=== PATIENT | male | born 1935 | race Hispanic/Latino ===

== ENCOUNTER 2017-02-06 13:21 | Emergency (ER) | payer MEDICARE, BC ==
[2017-02-06 13:23] VITALS: BMI 19.8
[2017-02-06 13:49] VITALS: BP 151/82; PULSE 56; RESP 20; TEMP 99; O2SAT 98
[2017-02-06] MEDS ORDERED: DiphenhydrAMINE 12.5 mg/5 ml LIQ UD (5 ml) PO STA (14:03)
--- NOTE | 2017-02-06 14:11 | ED PDOC ---
Arrival/HPI - General Chief Complaint: Abnormal Skin Integrity Time Seen by Provider: 02/06/17 13:53 Historian: Patient - History of Present Illness Narrative History of Present Illness (Text): 02/06/17 14:08 81 year old male presents to the emergency department with rash on left arm and left upper back for the past week. pt unsure if related to fungal cream used for penis. pt states rash is puritic at times. no known allergens 02/06/17 15:11 Time/Duration: 1 week Symptom Onset: Sudden Symptom Course: Unchanged Associated Symptoms (Text): Subjective fever Past Medical History - Provider Review Nursing Documentation Reviewed: Yes - Infectious Disease Hx of Infectious Diseases: None - Tetanus Immunization Tetanus Immunization: Unknown - Cardiac Hx Pacemaker: No - Neurological Hx Paralysis: No - Hematological/Oncological Hx Blood Transfusions: No Hx Blood Transfusion Reaction: No - Integumentary Other/Comment: fungal rash - Musculoskeletal/Rheumatological Hx Musculoskeletal Disorders: Yes - Genitourinary/Gynecological Hx Prostate Problems: Yes - Psychiatric Hx Emotional Abuse: No Hx Physical Abuse: No Hx Substance Use: No - Past Surgical History Past Surgical History: Non-Contributing - Surgical History Hx Dilation and Curettage: Yes (x2) - Anesthesia Hx Anesthesia: Yes Hx Anesthesia Reactions: No Hx Malignant Hyperthermia: No - Suicidal Assessment Feels Threatened In Home Enviroment: No Family/Social History - Physician Review Nursing Documentation Reviewed: Yes Family/Social History: Unknown Family HX Smoking Status: Never Smoked Hx Alcohol Use: No Hx Substance Use: No Hx Substance Use Treatment: No Allergies/Home Meds Allergies/Adverse Reactions: Allergies pcn Adverse Reaction (Uncoded 02/06/17 13:48) RASH Home Medications: Home Meds Medication Instructions Recorded Confirmed Atenolol 12.5 mg PO DAILY 08/20/12 02/06/17 Coenzyme Q10 [Co Q-10] 200 mg PO DAILY 07/10/13 02/06/17 Tamsulosin [Flomax] 0.4 mg PO DAILY 07/10/13 02/06/17 Review of Systems - Physician Review All systems were reviewed & negative as marked: Yes - Review of Systems Constitutional: Fevers (subjective) Respiratory: absent: SOB Cardiovascular: absent: Chest Pain Skin: Rash Physical Exam Vital Signs Reviewed: Yes Vital Signs Temp Pulse Resp BP Pulse Ox 02/06/17 13:39 99 F 56 L 20 151/82 H 98 Temperature: Afebrile Blood Pressure: Normal Pulse: Bradycardic Respiratory Rate: Normal Appearance: Positive for: Well-Appearing, Non-Toxic, Comfortable Pain Distress: None Mental Status: Positive for: Alert and Oriented X 3 - Systems Exam Head: Present: Atraumatic, Normocephalic Pupils: Present: PERRL Conjunctiva: Present: Normal Neck: Present: Normal Range of Motion Neurological: Present: GCS=15, CN II-XII Intact, Speech Normal Skin: Present: Rashes (Vesicular, erythematous rash with dermatomal pattern to left upper back and left arm) Psychiatric: Present: Alert, Oriented x 3, Normal Insight, Normal Concentration Medical Decision Making ED Course and Treatment: Impression: 81 year old male presents to the emergency department with rash on left arm and left upper back for the past week. Differential Diagnosis included but are not limited to: Shingles vs other nonspecific vesicular rash/allergic rxn Plan: -- Acyclovir, Benadryl, Prednisone -- Discharge, f/u with guest service supervisor Progress Notes: 02/06/17 15:11 - Medication Orders Current Medication Orders: Discontinued Medications Acyclovir (Zovirax) 400 mg PO STAT STA PRN Reason: Protocol Stop: 02/06/17 14:04 Last Admin: 02/06/17 14:19 Dose: 400 mg Diphenhydramine HCl (Benadryl) 25 mg PO STAT STA Stop: 02/06/17 14:04 Last Admin: 02/06/17 14:18 Dose: 25 mg Prednisone (Prednisone Tab) 50 mg PO STAT STA Stop: 02/06/17 14:04 Last Admin: 02/06/17 14:17 Dose: 50 mg - Scribe Statement The provider has reviewed the documentation as recorded by the Adriel Harrell Provider Scribe Attestation: All medical record entries made by the Adriel were at my direction and personally dictated by me. I have reviewed the chart and agree that the record accurately reflects my personal performance of the history, physical exam, medical decision making, and the department course for this patient. I have also personally directed, reviewed, and agree with the discharge instructions and disposition. Disposition/Present on Arrival - Present on Arrival Any Indicators Present on Arrival: No History of DVT/PE: No History of Uncontrolled Diabetes: No Urinary Catheter: No History of Decub. Ulcer: No History Surgical Site Infection Following: None - Disposition Have Diagnosis and Disposition been Completed?: Yes Diagnosis: Shingles, Rash Disposition: HOME/ ROUTINE Disposition Time: 02:00 Condition: STABLE Discharge Instructions (ExitCare): Shingles (ED), Acute Rash (ED) Print Language: [place]IZ[place] Additional Instructions: follow up with specialist. return to emergency room with worsening symptoms or concerns Prescriptions: Acyclovir 800 mg PO 5XD #35 tablet Prednisone 50 mg PO DAILY #5 tab Referrals: Augustin Adams MD [Primary Care Provider] - Follow up with primary Jamal Tay MD [Staff Provider] - Follow up with primary
== END 2017-02-06 14:55 | disposition home or self-care (01) ==
LOC: ED 13:21
DX: B02.9 Zoster without complications (principal); R21 Rash and other nonspecific skin eruption
CPT/HCPCS: 99283; J8499

== ENCOUNTER 2017-02-17 09:54 | Inpatient (IN) | payer MEDICARE, BC ==
[2017-02-17 10:18] VITALS: BMI 24.2
--- NOTE | 2017-02-17 10:43 | ED PDOC ---
Arrival/HPI - General Historian: Patient - History of Present Illness Time/Duration: Prior to Arrival Symptom Course: Unchanged Context: Home <Maria Teresa Nur - Last Filed: 02/17/17 11:09> <Luis Hargrove - Last Filed: 02/17/17 13:16> - General Chief Complaint: Weakness/Neurological Deficit Time Seen by Provider: 02/17/17 10:05 - History of Present Illness Narrative History of Present Illness (Text): 02/17/17 10:45 81 yo male with PMH of skin cancer and cardiac stents presents to ED with weakness. Patient is a poor history. Patient was in ED last week for rash and was diagnosed with shingles, he was discharged with acyclovir and predisone. Patient states that he took about half of the acyclovir course but stopped because he could not tolerate the medication. He states that he began to feel weak and had difficulty walking started using a cane. He states that he fell down twice, once at home and again on the street yesterday. He denies loss of consciousness but states he needed help getting up. He also reports unsteady gait trembling, and chills. He states he has not been eating as well due to nausea without vomiting. Patient states he continues to have pain where his rash is located, on his left arm and aspect of anterior his chest. Rash started about 2 weeks. He states hes having chest pain but associated with rash. PMD: Dr. Adams (Maria Teresa Nur) Past Medical History - Provider Review Nursing Documentation Reviewed: Yes - Infectious Disease Hx of Infectious Diseases: None - Tetanus Immunization Tetanus Immunization: Unknown - Cardiac Hx Cardiac Disorders: Yes Hx Hypertension: Yes Hx Pacemaker: No - Neurological Hx Paralysis: No - Hematological/Oncological Hx Blood Transfusions: No Hx Blood Transfusion Reaction: No Hx Shingles: Yes - Integumentary Other/Comment: fungal rash - Musculoskeletal/Rheumatological Hx Musculoskeletal Disorders: Yes - Genitourinary/Gynecological Hx Prostate Problems: Yes - Psychiatric Hx Emotional Abuse: No Hx Physical Abuse: No Hx Substance Use: No - Past Surgical History Past Surgical History: Non-Contributing - Surgical History Hx Coronary Stent: Yes (stent x2) - Anesthesia Hx Anesthesia: Yes Hx Anesthesia Reactions: No Hx Malignant Hyperthermia: No - Suicidal Assessment Feels Threatened In Home Enviroment: No <Maria Teresa Nur - Last Filed: 02/17/17 11:09> Family/Social History - Physician Review Nursing Documentation Reviewed: Yes Family/Social History: No Known Family HX Smoking Status: Never Smoked Hx Alcohol Use: No Hx Substance Use: No Hx Substance Use Treatment: No <Maria Teresa Nur - Last Filed: 02/17/17 11:09> Family/Social History: No Known Family HX <Luis Hargrove - Last Filed: 02/17/17 13:16> Allergies/Home Meds <Maria Teresa Nur - Last Filed: 02/17/17 11:09> <Luis Hargrove - Last Filed: 02/17/17 13:16> Allergies/Adverse Reactions: Allergies pcn Adverse Reaction (Uncoded 02/17/17 10:18) RASH Home Medications: Home Meds Medication Instructions Recorded Confirmed Tamsulosin [Flomax] 0.4 mg PO DAILY 07/10/13 02/17/17 Atenolol [Tenormin] 25 mg PO DAILY 02/17/17 02/17/17 Review of Systems - Review of Systems Constitutional: Fevers, Other (general weakness) Eyes: Normal. absent: Vision Changes ENT: Normal. absent: Hearing Changes, Sore Throat Respiratory: Normal. absent: SOB, Cough, Wheezing Cardiovascular: Normal, Chest Pain. absent: Palpitations, Calf Pain, Syncope Gastrointestinal: Abdominal Pain, Nausea. absent: Constipation, Diarrhea, Vomiting Genitourinary Male: Normal. absent: Dysuria, Frequency, Hematuria Musculoskeletal: Normal, Arthralgias. absent: Joint Swelling, Myalgias Skin: Rash (with pain ), Pruritis. absent: Laceration, Ulcer Neurological: Other (unsteady gait). absent: Headache, Dizziness, Speech Changes Endocrine: Normal Hemo/Lymphatic: Normal. absent: Easy Bleeding, Easy Bruising Psychiatric: Normal <Maria Teresa Nur - Last Filed: 02/17/17 11:09> Physical Exam - Systems Exam Head: Present: Atraumatic, Normocephalic Pupils: Present: PERRL. No: Non-Reactive, Pinpoint Extroacular Muscles: Present: EOMI Conjunctiva: Present: Normal. No: Injected, Icteric Mouth: Present: Moist Mucous Membranes Neck: Present: Normal Range of Motion. No: MIDLINE TENDERNESS Respiratory/Chest: Present: Clear to Auscultation, Good Air Exchange. No: Respiratory Distress, Accessory Muscle Use, Wheezes, Rales, Rhonchi, Tachypneic Cardiovascular: Present: Regular Rate and Rhythm, Normal S1, S2. No: Murmurs, Tachycardic, Bradycardic Abdomen: Present: Normal Bowel Sounds. No: Tenderness, Distention, Peritoneal Signs Back: Present: Normal Inspection Upper Extremity: Present: Other (macropapular rash, associated with pain ). No : Cyanosis, Edema Lower Extremity: Present: Normal Inspection, NORMAL PULSES. No: Edema, CALF TENDERNESS Neurological: Present: GCS=15, CN II-XII Intact, Speech Normal Skin: Present: Warm, Dry, Rashes, Normal Color Psychiatric: Present: Alert, Oriented x 3, Normal Insight, Normal Concentration <LiudmilaMaria Teresa - Last Filed: 02/17/17 11:09> Medical Decision Making <Liudmila,Maria Teresa - Last Filed: 02/17/17 11:09> - Critical Care Critical Care Minutes: 30 minutes - Lab Interpretations I have reviewed the lab results: Yes <DelvinLuis L - Last Filed: 02/17/17 13:16> ED Course and Treatment: 02/17/17 10:41 impression: differential diagnoses include but are not limited to: - viral syndrome/ shingels, dehydration, failure to thrive Plan: - CBC - CMP, magnesium - EKG - troponins - IVF (Liudmila,Maria Teresa) Patient seen and examined with resident. Came up with treatment and disposition plan with resident. The patient is a 81 year old male who presents to the emergency department complaining of weakness. Additional HPI details as noted by the resident. On physical examination the patient has a macropapular rash with pain. Patient EKG shows sinus brandycardia at 59 BPM with a 1st degree AV block, otherwise normal interval. Patent noted to have low sodium. In the setting of passing out a couple of days ago and weakness today, ICU was consulted. Case was discussed with Dr. Doyle , who is aware and agrees with the plan to admit the patient to ICU under his care. He states to give the patient hypertonic saline 75ml bolus. Case was discussed with Dr. Adams, who is aware and agrees with the plan. Results and plan were discussed with the patient, who expresses understanding. Patient given the opportunity to ask question, all questions were answered and there is agreement with the plan to be admitted to the hospital. (Luis Hargrove) - Lab Interpretations Lab Results: 02/17/17 11:06 02/17/17 11:06 Lab Results 02/17/17 11:06: Sodium 115 L*, Potassium 4.9, Chloride 85 L, Carbon Dioxide 22, Anion Gap 13, BUN 15, Creatinine 0.7, Est GFR ( Amer) > 60, Est GFR (Non- Af Amer) > 60, Random Glucose 104, Calcium 8.8, Magnesium 2.0, Total Bilirubin 0.8, AST 52, ALT 38, Alkaline Phosphatase 45, Lactate Dehydrogenase 518, Total Creatine Kinase 698 H, CK-MB (CK-2) 9.4 H, CK-MB (CK-2) % 1.3 L, Troponin I < 0.01, Total Protein 6.6, Albumin 3.7, Globulin 3.0, Albumin/Globulin Ratio 1.2 02/17/17 11:06: WBC 7.0, RBC 4.10, Hgb 12.9 L, Hct 35.2 L, MCV 85.9, MCH 31.5, MCHC 36.6, RDW 13.0, Plt Count 278, MPV 8.5, Gran % 50.4, Lymph % (Auto) 38.6 H , Merrick % (Auto) 10.2 H, Eos % (Auto) 0.7 L, Baso % (Auto) 0.1, Gran # 3.52, Lymph # 2.7, Merrick # 0.7 H, Eos # 0.1, Baso # 0.01 - EKG Interpretation EKG Interpretation (Text): 02/17/17 10:39 rate of 59 bpm sinus bradycardia with 1st degree AV block (Liudmila,Maria Teresa) - Medication Orders Current Medication Orders: Methylprednisolone (Solu-Medrol) 20 mg IVP Q12 TALIA Last Admin: 02/17/17 12:32 Dose: 20 mg Discontinued Medications Sodium Chloride (Hypertonic Saline 3%) 75 mls @ 75 mls/hr IV .Q1H ONE Stop: 02/17/17 13:14 Last Admin: 02/17/17 12:32 Dose: 75 mls/hr Sodium Chloride (Hypertonic Saline 3%) 75 ml IV ONCE ONE Stop: 02/17/17 11:54 <Maria Teresa Nur - Last Filed: 02/17/17 11:09> - PA / [employer]ER / Resident Statement MD/DO has reviewed & agrees with the documentation as recorded. MD/DO has examined the patient and agrees with the treatment plan. - Scribe Statement The provider has reviewed the documentation as recorded by the Scribe <Luis Hargrove - Last Filed: 02/17/17 13:16> - Scribe Statement Cally Osborne Provider Scribe Attestation: All medical record entries made by the Scribe were at my direction and personally dictated by me. I have reviewed the chart and agree that the record accurately reflects my personal performance of the history, physical exam, medical decision making, and the department course for this patient. I have also personally directed, reviewed, and agree with the discharge instructions and disposition. (Luis Hargrove) Disposition/Present on Arrival - Present on Arrival History of DVT/PE: No History of Uncontrolled Diabetes: No Urinary Catheter: No History of Decub. Ulcer: No History Surgical Site Infection Following: None <Maria Teresa Nur - Last Filed: 02/17/17 11:09> - Present on Arrival Any Indicators Present on Arrival: No - Disposition Have Diagnosis and Disposition been Completed?: Yes Disposition Time: 12:04 Patient Plan: Admission <Luis Hargrove - Last Filed: 02/17/17 13:16> - Disposition Diagnosis: Acute hyponatremia, Herpes zoster Disposition: HOSPITALIZED Condition: GUARDED
[2017-02-17] MEDS ORDERED: Sodium Chloride 0.9% 1,000 ML IV SCH ×2 (10:45→15:45)
[2017-02-17 11:08] LABS: ADD MANUAL DIFF? NO
[2017-02-17 11:12] LABS: BASO # 0.01 K/mm3 (0.0-2.0); BASO % 0.1 % (0.0-3.0); EOS # 0.1 (0.0-0.7); EOS % 0.7 % (1.5-5.0); GRAN # 3.52 (1.4-6.5); GRAN % 50.4 % (50.0-68.0); HEMATOCRIT 35.2 % (42.0-52.0); LYMPH # 2.7 (1.2-3.4); LYMPH % 38.6 % (22.0-35.0); MEAN CELL VOLUME 85.9 fL (80.0-105.0); MEAN CORPUSCULAR HEMOGLOBIN 31.5 pg (25.0-35.0); MEAN CORPUSCULAR HGB CONC 36.6 g/dl (31.0-37.0); MEAN PLATELET VOLUME 8.5 fl (7.0-11.0); MONO # 0.7 (0.1-0.6); MONO % 10.2 % (1.0-6.0); PLATELET COUNT 278 10^3/uL (120.0-450.0)
[2017-02-17 11:23] LABS: ALB/GLOB RATIO 1.2 (1.1-1.8); ALKALINE PHOSPHATASE 45 U/L (38-133); ALT/SGPT 38 U/L (7-56); AST/SGOT 52 U/L (15-59); BILIRUBIN,TOTAL 0.8 mg/dL (0.2-1.3); BLOOD UREA NITROGEN 15 mg/dL (7-21); CALCIUM 8.8 mg/dL (8.4-10.5); CARBON DIOXIDE 22 mmol/L (21-33); CHLORIDE 85 mmol/L (98-107); GFR AFRICAN-AMERICAN > 60; GLUCOSE,RANDOM 104 mg/dL (70-110); POTASSIUM 4.9 mmol/L (3.6-5.0); TOTAL PROTEIN 6.6 g/dL (5.8-8.3)
[2017-02-17 11:31] LABS: SODIUM 115 mmol/L (132-148)
[2017-02-17 11:36] LABS: TROPONIN I < 0.01 ng/mL
[2017-02-17] MEDS ORDERED: SODIUM CHLORIDE 3% IV ONE (12:15)
[2017-02-17] MEDS: MethylPREDNISolone 40 mg Vial IVP SCH ×2 (12:32→22:15)
--- NOTE | 2017-02-17 12:59 | CT ---
PROCEDURE: CT HEAD WITHOUT CONTRAST. HISTORY: pass out COMPARISON: None available. TECHNIQUE: Axial computed tomography images were obtained through the head/brain without intravenous contrast. Radiation dose: Total exam DLP = 768 mGy-cm. This CT exam was performed using one or more of the following dose reduction techniques: Automated exposure control, adjustment of the mA and/or kV according to patient size, and/or use of iterative reconstruction technique. FINDINGS: HEMORRHAGE: Are also in the differential considerations. Less dense areas of calcification are also are considerations. The chronicity of these findings is unknown In the differential for the basal ganglion appearances. No midline shift is noted. Generalized prominence to the cerebral sulci and ventriculomegaly -findings consistent with that advanced cerebral atrophy is suggested. Marked head tilt is present BRAIN: As above VENTRICLES: Ventriculomegaly commensurate with the degree of atrophy. CALVARIUM: Unremarkable. PARANASAL SINUSES: Inflammatory changes mostly retention cyst suggested. MASTOID AIR CELLS: Unremarkable as visualized. No inflammatory changes. OTHER FINDINGS: None. IMPRESSION: Bilateral basal ganglionic hyperdensities. In part, these are basal ganglionic punctate calcifications. Less dense areas in each basal ganglion are also present. Small coalescent areas of petechial hemorrhage are also considerations here. No associated mass effect. No significant appearing surrounding edema. Less dense areas of calcification are in the differential for small bilateral basal ganglionic petechial hemorrhagic components. No comparison studies are available. Consider MRI of the brain to further evaluate. No mass effect or extra-axial blood seen. Cerebral atrophy Incidental paranasal sinus inflammatory changes
[2017-02-17 13:28] LABS: INR 1.06 (0.93-1.08)
[2017-02-17 13:30] LABS: BLOOD UREA NITROGEN 14 mg/dL (7-21); CALCIUM 8.5 mg/dL (8.4-10.5); CARBON DIOXIDE 20 mmol/L (21-33); CHLORIDE 88 mmol/L (98-107); GFR AFRICAN-AMERICAN > 60; GLUCOSE,RANDOM 105 mg/dL (70-110); POTASSIUM 4.5 mmol/L (3.6-5.0)
[2017-02-17 13:36] LABS: SODIUM 115 mmol/L (132-148)
[2017-02-17 14:01] LABS: THYROID STIMULATING HORMONE 0.31 mIU/mL (0.46-4.68)
--- NOTE | 2017-02-17 14:28 | RAD ---
HISTORY: stat COMPARISON: 07/10/2013 FINDINGS: LUNGS: No active pulmonary disease. PLEURA: No significant pleural effusion identified, no pneumothorax apparent. CARDIOVASCULAR: Normal. OSSEOUS STRUCTURES: No significant abnormalities. VISUALIZED UPPER ABDOMEN: Normal. OTHER FINDINGS: None. IMPRESSION: No active disease.
--- NOTE | 2017-02-17 14:29 | CARD ---
APPROVED REPORT EKG Measurement Heart [id number] <Conclusion> Sinus bradycardia with 1st degree AV block Otherwise normal ECG
--- NOTE | 2017-02-17 14:41 | PN ---
DATE: 02/17/2017 This is an 81-year-old gentleman with history of hypertension and recent shingles, on acyclovir, who passed out yesterday on the street; however, came around and went home. Today morning, he was feeling a little bit dizzy and tired and went to Emergency Room to be evaluated. No fever, no chills, no sweats. No shortness of breath, no diarrhea, no vomiting. The patient occasionally felt nauseated, however, over a one-day period. PAST MEDICAL HISTORY: Hypertension, shingles. FAMILY HISTORY: Noncontributory. ALLERGIES: PENICILLIN. SOCIAL HISTORY: No alcohol or illicit drug abuse. No tobacco smoking. REVIEW OF SYSTEMS: Revealed 12 organ system other than mentioned in history of present illness is negative. LABORATORY DATA: Sodium 115, potassium 4.9, chloride 85, carbon dioxide 22, BUN 15, creatinine 0.7, glucose 104, AST 52, ALT 38. Troponin less than 0.01. WBC 7, hemoglobin 12.9, platelet count 278. EKG: No specific ischemic changes, normal sinus rhythm. Chest x-ray, CAT scan of the head are pending. ASSESSMENT AND PLAN: This is an 81-year-old gentleman who presented with severe hyponatremia and episode of losing consciousness. At present time, patient is somewhat dizzy and fatigued. He will receive 75 mL of 3% sodium chloride in the Emergency Room. We will repeat BMP shortly thereafter to check on sodium level at that point. We will continue with BMP every 4 hours and will avoid increment in sodium of more than 6 mEq per liter over the first 24 hours. Will send urine osmolarity, plasma osmolarity, TSH. We will get echocardiogram to rule out cardiogenic cause of severe hyponatremia. The patient was on prednisone as a part of the treatment for shingles complication and we will continue with Solu-Medrol 20 mg IV q. 12 for now. I will not order cortisol for that reason. We will also order urine electrolytes. The patient' s LFTs are normal and renal function appears to be within normal limits. He appears to be euvolemic vs hypovolemic on exam (hypochloremia and somewhat dry membranes and ok skin turgor--but physical exam lacks SN/SP for volume status, thus urine lites and osm were sent). I will start NS@100 cc/hr and as patient tolerates PO will start salt tablets. The patient will be admitted to ICU. We will continue with deep venous thrombosis and gastrointestinal prophylaxis. We will continue to maintain euvolemia, euglycemia, normothermia and oxygen saturation more than 90%. First set of troponin is negative. EKG did not show any specific ischemic changes. Will repeat troponin in 4 hours. We will obtain nephrology consult as well. ccm time 40 min Maxim Doyle MD cc: [id number] TT: 02/17/2017 14:40:40 Confirmation # [id number] Dictation # [id number] burton ARIAS
[2017-02-17] MEDS ORDERED: Sodium Chloride 3% 500 ML IV SCH ×2 (15:30→21:45)
[2017-02-17 16:28] LABS: BLOOD UREA NITROGEN 13 mg/dL (7-21); CALCIUM 8.7 mg/dL (8.4-10.5); CARBON DIOXIDE 20 mmol/L (21-33); CHLORIDE 87 mmol/L (98-107); GFR AFRICAN-AMERICAN > 60; GLUCOSE,RANDOM 131 mg/dL (70-110); POTASSIUM 4.5 mmol/L (3.6-5.0)
[2017-02-17 16:31] LABS: SODIUM 115 mmol/L (132-148)
[2017-02-17 18:27] LABS: BLOOD UREA NITROGEN 14 mg/dL (7-21); CALCIUM 8.6 mg/dL (8.4-10.5); CARBON DIOXIDE 21 mmol/L (21-33); CHLORIDE 87 mmol/L (98-107); GFR AFRICAN-AMERICAN > 60; GLUCOSE,RANDOM 187 mg/dL (70-110); POTASSIUM 4.6 mmol/L (3.6-5.0)
[2017-02-17 18:30] LABS: SODIUM 115 mmol/L (132-148)
[2017-02-17] MEDS ORDERED: Pneumococcal 23-Valent Vaccine IM ONE (19:47)
[2017-02-17 22:41] LABS: BLOOD UREA NITROGEN 16 mg/dL (7-21); CALCIUM 8.5 mg/dL (8.4-10.5); CARBON DIOXIDE 21 mmol/L (21-33); CHLORIDE 88 mmol/L (98-107); GFR AFRICAN-AMERICAN > 60
[2017-02-17 22:43] LABS: SODIUM 115 mmol/L (132-148)
[2017-02-17 22:45] LABS: GLUCOSE,RANDOM 117 mg/dL (70-110)
[2017-02-17 22:54] LABS: TROPONIN I < 0.01 ng/mL
[2017-02-18 03:10] LABS: BLOOD UREA NITROGEN 12 mg/dL (7-21); CALCIUM 8.4 mg/dL (8.4-10.5); CARBON DIOXIDE 20 mmol/L (21-33); CHLORIDE 92 mmol/L (95-110); GFR AFRICAN-AMERICAN > 60; GLUCOSE,RANDOM 131 mg/dL (70-110); POTASSIUM 4.5 mmol/L (3.6-5.0)
[2017-02-18 03:53] LABS: SODIUM 118 mmol/L (132-148)
[2017-02-18 06:19] LABS: HEMATOCRIT 36.6 % (42.0-52.0); MEAN CELL VOLUME 85.7 fL (80.0-105.0); MEAN CORPUSCULAR HEMOGLOBIN 31.1 pg (25.0-35.0); MEAN CORPUSCULAR HGB CONC 36.3 g/dl (31.0-37.0); MEAN PLATELET VOLUME 8.4 fl (7.0-11.0); WHITE BLOOD COUNT 8.5 10^3/ul (4.5-11.0)
[2017-02-18 06:23] LABS: BLOOD UREA NITROGEN 11 mg/dL (7-21); CALCIUM 8.3 mg/dL (8.4-10.5); CARBON DIOXIDE 22 mmol/L (21-33); CHLORIDE 92 mmol/L (95-110); GFR AFRICAN-AMERICAN > 60; GLUCOSE,RANDOM 126 mg/dL (70-110); POTASSIUM 4.5 mmol/L (3.6-5.0); SODIUM 120 mmol/L (132-148)
[2017-02-18 08:57] LABS: ALB/GLOB RATIO 1.2 (1.1-1.8); ALKALINE PHOSPHATASE 40 U/L (38-133); ALT/SGPT 36 U/L (7-56); AST/SGOT 39 U/L (15-59); BILIRUBIN,TOTAL 0.6 mg/dL (0.2-1.3); BLOOD UREA NITROGEN 11 mg/dL (7-21); CALCIUM 8.2 mg/dL (8.4-10.5); CARBON DIOXIDE 21 mmol/L (21-33); CHLORIDE 93 mmol/L (98-107); GFR AFRICAN-AMERICAN > 60; GLUCOSE,RANDOM 119 mg/dL (70-110); POTASSIUM 4.4 mmol/L (3.6-5.0); SODIUM 120 mmol/L (132-148); TOTAL PROTEIN 6.2 g/dL (5.8-8.3)
[2017-02-18] MEDS: MethylPREDNISolone 40 mg Vial IVP SCH ×2 (09:26→22:00)
[2017-02-18] MEDS ORDERED: Tolvaptan 15 MG TAB PO SCH (10:00)
[2017-02-18 10:41] LABS: T4 8.7 ug/dL (5.5-11.0)
[2017-02-18 10:55] LABS: T3 1.03 ng/mL (0.97-1.69); THYROID STIMULATING HORMONE 0.16 mIU/mL (0.46-4.68)
[2017-02-18 14:12] LABS: BLOOD UREA NITROGEN 13 mg/dL (7-21); CALCIUM 8.5 mg/dL (8.4-10.5); CARBON DIOXIDE 20 mmol/L (21-33); CHLORIDE 94 mmol/L (98-107); GFR AFRICAN-AMERICAN > 60; GLUCOSE,RANDOM 142 mg/dL (70-110); POTASSIUM 4.6 mmol/L (3.6-5.0); SODIUM 121 mmol/L (132-148)
--- NOTE | 2017-02-18 14:19 | HP ---
CHIEF COMPLAINT AND HISTORY OF PRESENT ILLNESS: This is an 81-year-old male who is coming into the [facility] with complaints of weakness. The patient has a history of coronary artery disease and skin c ancer. He had developed shingles and had come into the ER on 02/06. He was given acyclovir and predni sone and discharged home. The patient says he was taking acyclovir, but he was not tolerating the me dication well. He had come in to my office for evaluation. I confirmed that he did have shingles wi th active lesions. He was advised to continue with the acyclovir. He says that he tried to continue , but was not able to tolerate and had discontinued his medications. He has no complaint of any feve rs or chills, no nausea, no vomiting, no dysuria or frequency. He says he is feeling better. His ne uropathy from his shingles has improved as well. He is not using any significant pain medications. I did give him a prescription for pain medications. He has no nausea, no vomiting, no dysuria or sarah quency. REVIEW OF SYSTEMS: All other review of symptoms is within normal limits ALLERGIES: PENICILLIN. SOCIAL HISTORY: He does not smoke or drink. HOME MEDICATIONS: Flomax, atenolol and aspirin. FAMILY HISTORY: Noncontributory. PAST MEDICAL HISTORY: Coronary artery disease, shingles. PHYSICAL EXAMINATION: VITAL SIGNS: Temperature is 98, pulse is 63, blood pressure is 144/72, respirations 17, O2 saturatio n 97%. Height is 5 feet 6, weight is 150 pounds. GENERAL: Patient lying in bed, flat, and in no apparent distress. HEAD AND NECK EXAM: Atraumatic, normocephalic. Conjunctivae are pink. Throat clear and mouth with moist mucosa. Oropharynx benign. EYES: Extraocular movements are intact. PERRLA. NECK: Supple. No JVD, thyromegaly, or adenopathy. No bruits. HEART: S1 and S2 regular rate and rhythm. No murmurs, rubs, or gallops. LUNGS: Clear to auscultation bilaterally. No wheezing rales or rhonchi appreciated. No retraction s on exam. ABDOMEN: Soft, nontender, nondistended. Bowel sounds are positive in all quadrants. No rebound. No hepatosplenomegaly. EXTREMITIES: No cyanosis, clubbing, or edema. NEURO: No facial asymmetry, tongue is midline, no uvula deviation. Power is 5/5 in upper extremity and 5/5 in lower extremity. Sensation is normal in upper extremity and lower extremity. PSYCH: Awake, alert, oriented x3. No anxiety or depression symptoms. Good insight. Normal affec t. : No CVA tenderness VASCULAR: 2+ pulses in carotid and pedal pulses. SKIN: In the left chest, there are small dry lesions and also in the back. No active lesions of sh ingles. No papules, open areas. SPINE: Normal curvature. LYMPHADENOPATHY: No anterior cervical or posterior cervical adenopathy. No inguinal adenopathy. LABORATORY DATA: White count of 7.0, hemoglobin 12.9, platelet count is 278. Chemistry shows sodium of 115, creatinine 0.7. Serum osmolarity is 245. Troponin is 0.01. TSH is 0.31. Urine shows urin e osmolality is 538. Urine sodium is 157. CT of the head is evaluated. There are bilateral basal ganglionic hyperdensities. The cerebral atro phy has been reviewed. The chest x-ray shows no active disease. EKG shows sinus [place] with first-degree AV block, no ST-T changes, heart rate is 59. ASSESSMENT: 1. Symptomatic hyponatremia. 2. Shingles, resolving. 3. Coronary artery disease. 4. Benign prostatic hypertrophy. PLAN: The patient is admitted to the ICU. He was given 3% saline. His sodium has improved. The delia villalobos is on atenolol. I will hold his aspirin because of the abnormal CAT scan. I will order an MRI . I will also order T3, T4 levels, repeat his blood work tomorrow. I have started him on tolvaptan. We will continue following closely. He will need physical therapy. He may also need transitional care unit. He lives alone. Continue to follow closely. Augustin Adams MD cc: [id number] TT: 02/18/2017 14:19:13 tn
--- NOTE | 2017-02-18 16:22 | CP.CCUPN ---
<Hannah Singh - Last Filed: 02/18/17 16:31> CCU Subjective - Physician Review Subjective (Free Text): 02/18/17 16:16 Dizziness resolved. OOB comfortably, tolerating food. complained hard to urinate while lying. urine output about 2L over past 8 hr CCU Objective - Vital Signs / Intake & Output Vital Signs (Last 4 hours): Vital Signs Pulse Resp BP Pulse Ox 02/18/17 15:30 71 39 H 97 02/18/17 15:20 62 22 97 02/18/17 15:10 64 14 97 02/18/17 15:00 63 24 156/60 H 96 02/18/17 14:50 62 19 97 02/18/17 14:40 64 20 97 02/18/17 14:30 65 24 97 02/18/17 14:20 62 21 97 02/18/17 14:10 65 16 95 02/18/17 14:01 62 19 136/59 L 96 02/18/17 14:00 62 21 96 02/18/17 13:50 69 22 97 02/18/17 13:40 72 28 H 96 02/18/17 13:30 67 32 H 99 02/18/17 13:20 63 18 97 02/18/17 13:10 62 20 97 02/18/17 13:00 65 20 153/70 H 98 02/18/17 12:50 61 18 97 02/18/17 12:40 61 17 96 02/18/17 12:30 61 19 97 02/18/17 12:20 64 18 98 Intake and Output (Last 8hrs): Intake & Output 02/18/17 02/18/17 02/18/17 06:59 14:59 22:59 Intake Total 1020 Output Total 800 Balance 220 Weight 148 lb Intake: IV 960 Right Antecubital 960 Oral 60 Output: Urine 800 Urine, Voided 800 Other: Voiding Method Urinal # Bowel Movements 0 - Physical Exam Head: Positive for: Atraumatic, Normocephalic Pupils: Positive for: PERRL. Negative for: Non-Reactive, Pinpoint Extroacular Muscles: Positive for: EOMI Conjunctiva: Positive for: Normal. Negative for: Injected, Icteric Mouth: Positive for: Moist Mucous Membranes Neck: Positive for: Normal Range of Motion. Negative for: MIDLINE TENDERNESS Respiratory/Chest: Positive for: Clear to Auscultation, Good Air Exchange. Negative for: Respiratory Distress, Accessory Muscle Use, Wheezes, Rales, Rhonchi, Tachypneic Cardiovascular: Positive for: Regular Rate and Rhythm, Normal S1, S2. Negative for: Murmurs, Tachycardic, Bradycardic Abdomen: Positive for: Normal Bowel Sounds. Negative for: Tenderness, Distention, Peritoneal Signs Back: Positive for: Normal Inspection Upper Extremity: Positive for: Other (macropapular rash, associated with pain ) . Negative for: Cyanosis, Edema Lower Extremity: Positive for: Normal Inspection, NORMAL PULSES. Negative for: Edema, CALF TENDERNESS Neurological: Positive for: GCS=15, CN II-XII Intact, Speech Normal Skin: Positive for: Warm, Dry, Rashes, Normal Color Psychiatric: Positive for: Alert, Oriented x 3, Normal Insight, Normal Concentration - Medications Active Medications: Active Medications Generic Name Dose Route Start Last Admin Trade Name Freq PRN Reason Stop Dose Admin Atenolol 25 mg 02/18/17 10:00 02/18/17 09:25 Tenormin PO 25 mg DAILY TALIA Administration Methylprednisolone 20 mg 02/17/17 12:30 02/18/17 09:26 Solu-Medrol IVP 20 mg Q12 TALIA Administration Tolvaptan 15 mg 02/18/17 10:00 02/18/17 12:12 Samsca PO 02/20/17 08:38 15 mg DAILY TALIA Administration - Patient Studies Lab Studies: Microbiology Studies 02/17/17 14:00 MRSA Culture (Admit) - Final Nose MRSA NOT DETECTED 02/17/17 13:00 Blood Culture - Preliminary Blood-Venous NO GROWTH AFTER 24 HOURS 02/17/17 13:00 Blood Culture - Preliminary Blood-Venous NO GROWTH AFTER 24 HOURS Lab Studies 02/18/17 02/18/17 02/18/17 Range/Units 13:55 10:00 09:30 WBC (4.5-11.0) 10^3/ul RBC (3.5-6.1) 10^6/uL Hgb (14.0-18.0) gm/dL Hct (42.0-52.0) % MCV (80.0-105.0) fL MCH (25.0-35.0) pg MCHC (31.0-37.0) g/dl RDW (11.5-14.5) % Plt Count (120.0-450.0) 10^3/uL MPV (7.0-11.0) fl Sodium 121 L (132-148) mmol/L Potassium 4.6 (3.6-5.0) mmol/L Chloride 94 L (98-107) mmol/L Carbon Dioxide 20 L (21-33) mmol/L Anion Gap 12 (10-20) BUN 13 (7-21) mg/dL Creatinine 0.6 (0.5-1.4) mg/dL Est GFR ( Amer) > 60 Est GFR (Non-Af Amer) > 60 Random Glucose 142 H (70-110) mg/dL Serum Osmolality (271-296) mosm/kg Calcium 8.5 (8.4-10.5) mg/dL Total Bilirubin (0.2-1.3) mg/dL AST (15-59) U/L ALT (7-56) U/L Alkaline Phosphatase (38-133) U/L Troponin I ng/mL Total Protein (5.8-8.3) g/dL Albumin (3.0-4.8) g/dL Globulin gm/dL Albumin/Globulin Ratio (1.1-1.8) Thyroxine (T4) 8.7 (5.5-11.0) ug/dL Total T3 1.03 (0.97-1.69) ng/mL TSH 3rd Generation 0.16 L (0.46-4.68) mIU/mL Urine Osmolality 452 (50-645) mosm/kg Ur Random Sodium meq/L Ur Random Potassium meq/L 02/18/17 02/18/17 02/18/17 Range/Units 08:35 08:01 05:30 WBC (4.5-11.0) 10^3/ul RBC (3.5-6.1) 10^6/uL Hgb (14.0-18.0) gm/dL Hct (42.0-52.0) % MCV (80.0-105.0) fL MCH (25.0-35.0) pg MCHC (31.0-37.0) g/dl RDW (11.5-14.5) % Plt Count (120.0-450.0) 10^3/uL MPV (7.0-11.0) fl Sodium 120 L 120 L (132-148) mmol/L Potassium 4.4 4.5 (3.6-5.0) mmol/L Chloride 93 L 92 L (98-107) mmol/L Carbon Dioxide 21 22 (21-33) mmol/L Anion Gap 10 11 (10-20) BUN 11 11 (7-21) mg/dL Creatinine 0.6 0.6 (0.5-1.4) mg/dL Est GFR ( Amer) > 60 > 60 Est GFR (Non-Af Amer) > 60 > 60 Random Glucose 119 H 126 H (70-110) mg/dL Serum Osmolality (271-296) mosm/kg Calcium 8.2 L 8.3 L (8.4-10.5) mg/dL Total Bilirubin 0.6 (0.2-1.3) mg/dL AST 39 (15-59) U/L ALT 36 (7-56) U/L Alkaline Phosphatase 40 (38-133) U/L Troponin I ng/mL Total Protein 6.2 (5.8-8.3) g/dL Albumin 3.4 (3.0-4.8) g/dL Globulin 2.8 gm/dL Albumin/Globulin Ratio 1.2 (1.1-1.8) Thyroxine (T4) (5.5-11.0) ug/dL Total T3 (0.97-1.69) ng/mL TSH 3rd Generation (0.46-4.68) mIU/mL Urine Osmolality (50-645) mosm/kg Ur Random Sodium 105 meq/L Ur Random Potassium meq/L 02/18/17 02/18/17 02/17/17 Range/Units 05:30 02:30 22:20 WBC 8.5 D (4.5-11.0) 10^3/ul RBC 4.27 (3.5-6.1) 10^6/uL Hgb 13.3 L (14.0-18.0) gm/dL Hct 36.6 L (42.0-52.0) % MCV 85.7 (80.0-105.0) fL MCH 31.1 (25.0-35.0) pg MCHC 36.3 (31.0-37.0) g/dl RDW 13.0 (11.5-14.5) % Plt Count 290 (120.0-450.0) 10^3/uL MPV 8.4 (7.0-11.0) fl Sodium 118 L* 115 L* (132-148) mmol/L Potassium 4.5 5.0 (3.6-5.0) mmol/L Chloride 92 L 88 L (98-107) mmol/L Carbon Dioxide 20 L 21 (21-33) mmol/L Anion Gap 11 11 (10-20) BUN 12 16 (7-21) mg/dL Creatinine 0.6 0.7 (0.5-1.4) mg/dL Est GFR ( Amer) > 60 > 60 Est GFR (Non-Af Amer) > 60 > 60 Random Glucose 131 H 117 H (70-110) mg/dL Serum Osmolality (271-296) mosm/kg Calcium 8.4 8.5 (8.4-10.5) mg/dL Total Bilirubin (0.2-1.3) mg/dL AST (15-59) U/L ALT (7-56) U/L Alkaline Phosphatase (38-133) U/L Troponin I < 0.01 ng/mL Total Protein (5.8-8.3) g/dL Albumin (3.0-4.8) g/dL Globulin gm/dL Albumin/Globulin Ratio (1.1-1.8) Thyroxine (T4) (5.5-11.0) ug/dL Total T3 (0.97-1.69) ng/mL TSH 3rd Generation (0.46-4.68) mIU/mL Urine Osmolality (50-645) mosm/kg Ur Random Sodium meq/L Ur Random Potassium meq/L 02/17/17 02/17/17 02/17/17 Range/Units 22:20 18:00 16:42 WBC (4.5-11.0) 10^3/ul RBC (3.5-6.1) 10^6/uL Hgb (14.0-18.0) gm/dL Hct (42.0-52.0) % MCV (80.0-105.0) fL MCH (25.0-35.0) pg MCHC (31.0-37.0) g/dl RDW (11.5-14.5) % Plt Count (120.0-450.0) 10^3/uL MPV (7.0-11.0) fl Sodium 115 L* (132-148) mmol/L Potassium 4.6 (3.6-5.0) mmol/L Chloride 87 L (98-107) mmol/L Carbon Dioxide 21 (21-33) mmol/L Anion Gap 12 (10-20) BUN 14 (7-21) mg/dL Creatinine 0.7 (0.5-1.4) mg/dL Est GFR ( Amer) > 60 Est GFR (Non-Af Amer) > 60 Random Glucose 187 H (70-110) mg/dL Serum Osmolality 248 L (271-296) mosm/kg Calcium 8.6 (8.4-10.5) mg/dL Total Bilirubin (0.2-1.3) mg/dL AST (15-59) U/L ALT (7-56) U/L Alkaline Phosphatase (38-133) U/L Troponin I ng/mL Total Protein (5.8-8.3) g/dL Albumin (3.0-4.8) g/dL Globulin gm/dL Albumin/Globulin Ratio (1.1-1.8) Thyroxine (T4) (5.5-11.0) ug/dL Total T3 (0.97-1.69) ng/mL TSH 3rd Generation (0.46-4.68) mIU/mL Urine Osmolality (50-645) mosm/kg Ur Random Sodium meq/L Ur Random Potassium 55.3 meq/L 02/17/17 02/17/17 02/17/17 Range/Units 16:42 16:10 16:10 WBC (4.5-11.0) 10^3/ul RBC (3.5-6.1) 10^6/uL Hgb (14.0-18.0) gm/dL Hct (42.0-52.0) % MCV (80.0-105.0) fL MCH (25.0-35.0) pg MCHC (31.0-37.0) g/dl RDW (11.5-14.5) % Plt Count (120.0-450.0) 10^3/uL MPV (7.0-11.0) fl Sodium 115 L* (132-148) mmol/L Potassium 4.5 (3.6-5.0) mmol/L Chloride 87 L (98-107) mmol/L Carbon Dioxide 20 L (21-33) mmol/L Anion Gap 13 (10-20) BUN 13 (7-21) mg/dL Creatinine 0.6 (0.5-1.4) mg/dL Est GFR ( Amer) > 60 Est GFR (Non-Af Amer) > 60 Random Glucose 131 H (70-110) mg/dL Serum Osmolality 245 L (271-296) mosm/kg Calcium 8.7 (8.4-10.5) mg/dL Total Bilirubin (0.2-1.3) mg/dL AST (15-59) U/L ALT (7-56) U/L Alkaline Phosphatase (38-133) U/L Troponin I ng/mL Total Protein (5.8-8.3) g/dL Albumin (3.0-4.8) g/dL Globulin gm/dL Albumin/Globulin Ratio (1.1-1.8) Thyroxine (T4) (5.5-11.0) ug/dL Total T3 (0.97-1.69) ng/mL TSH 3rd Generation (0.46-4.68) mIU/mL Urine Osmolality 538 (50-645) mosm/kg Ur Random Sodium 157 meq/L Ur Random Potassium meq/L Laboratory Results - last 24 hr 02/17/17 02/17/17 02/17/17 16:10 16:10 16:42 WBC RBC Hgb Hct MCV MCH MCHC RDW Plt Count MPV Sodium 115 L* Potassium 4.5 Chloride 87 L Carbon Dioxide 20 L Anion Gap 13 BUN 13 Creatinine 0.6 Est GFR ( Amer) > 60 Est GFR (Non-Af Amer) > 60 Random Glucose 131 H Serum Osmolality 245 L Calcium 8.7 Total Bilirubin AST ALT Alkaline Phosphatase Troponin I Total Protein Albumin Globulin Albumin/Globulin Ratio Thyroxine (T4) Total T3 TSH 3rd Generation Urine Osmolality 538 Ur Random Sodium 157 Ur Random Potassium 02/17/17 02/17/17 02/17/17 16:42 18:00 22:20 WBC RBC Hgb Hct MCV MCH MCHC RDW Plt Count MPV Sodium 115 L* Potassium 4.6 Chloride 87 L Carbon Dioxide 21 Anion Gap 12 BUN 14 Creatinine 0.7 Est GFR ( Amer) > 60 Est GFR (Non-Af Amer) > 60 Random Glucose 187 H Serum Osmolality 248 L Calcium 8.6 Total Bilirubin AST ALT Alkaline Phosphatase Troponin I Total Protein Albumin Globulin Albumin/Globulin Ratio Thyroxine (T4) Total T3 TSH 3rd Generation Urine Osmolality Ur Random Sodium Ur Random Potassium 55.3 02/17/17 02/18/17 02/18/17 22:20 02:30 05:30 WBC 8.5 D RBC 4.27 Hgb 13.3 L Hct 36.6 L MCV 85.7 MCH 31.1 MCHC 36.3 RDW 13.0 Plt Count 290 MPV 8.4 Sodium 115 L* 118 L* Potassium 5.0 4.5 Chloride 88 L 92 L Carbon Dioxide 21 20 L Anion Gap 11 11 BUN 16 12 Creatinine 0.7 0.6 Est GFR ( Amer) > 60 > 60 Est GFR (Non-Af Amer) > 60 > 60 Random Glucose 117 H 131 H Serum Osmolality Calcium 8.5 8.4 Total Bilirubin AST ALT Alkaline Phosphatase Troponin I < 0.01 Total Protein Albumin Globulin Albumin/Globulin Ratio Thyroxine (T4) Total T3 TSH 3rd Generation Urine Osmolality Ur Random Sodium Ur Random Potassium 02/18/17 02/18/17 02/18/17 05:30 08:01 08:35 WBC RBC Hgb Hct MCV MCH MCHC RDW Plt Count MPV Sodium 120 L 120 L Potassium 4.5 4.4 Chloride 92 L 93 L Carbon Dioxide 22 21 Anion Gap 11 10 BUN 11 11 Creatinine 0.6 0.6 Est GFR ( Amer) > 60 > 60 Est GFR (Non-Af Amer) > 60 > 60 Random Glucose 126 H 119 H Serum Osmolality Calcium 8.3 L 8.2 L Total Bilirubin 0.6 AST 39 ALT 36 Alkaline Phosphatase 40 Troponin I Total Protein 6.2 Albumin 3.4 Globulin 2.8 Albumin/Globulin Ratio 1.2 Thyroxine (T4) Total T3 TSH 3rd Generation Urine Osmolality Ur Random Sodium 105 Ur Random Potassium 02/18/17 02/18/17 02/18/17 09:30 10:00 13:55 WBC RBC Hgb Hct MCV MCH MCHC RDW Plt Count MPV Sodium 121 L Potassium 4.6 Chloride 94 L Carbon Dioxide 20 L Anion Gap 12 BUN 13 Creatinine 0.6 Est GFR ( Amer) > 60 Est GFR (Non-Af Amer) > 60 Random Glucose 142 H Serum Osmolality Calcium 8.5 Total Bilirubin AST ALT Alkaline Phosphatase Troponin I Total Protein Albumin Globulin Albumin/Globulin Ratio Thyroxine (T4) 8.7 Total T3 1.03 TSH 3rd Generation 0.16 L Urine Osmolality 452 Ur Random Sodium Ur Random Potassium Critical Care Progress Note - Nutrition Nutrition: Nutrition Category Date Time Status Regular Diet [DIET] Diets 02/17/17 Dinner Ordered Assessment/Plan - Assessment and Plan (Free Text) Plan: 81 M with PMH of CAD with 2 stents, BPG, admitted to ICU for symptomatic hyponatremia and episode of losing consciousness. Hyponatermia likely from hypovolemic vs euvolemic hypotonic hyponatermia. 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 Neuro Dizziness resolved Basal ganglion punctate calcification vs small coalescent petechial hemorrhage. Card Atenolol ASA hold for abnormal CT scan, pending MRI Echo pending official read Pulm No active issue GI tolerate PO negative fluid balance may worsened progression of hyponatremic treatment Endo BMPq4 Pending T3, T4 Start tolvaptan for SIADH NS@100 (s/p 75cc of 3%, 1L NS, Na tablets x 3, 3% 160cc which raised Na from 155 to 120) ID shingles, resolving Disposition PT Rehab OOB Transfer to med/surg S/R/D/w Dr. Muhammad - Date & Time Date: 02/18/17 Time: 16:22 <Jb BRUSH,Inafariha H - Last Filed: 02/18/17 17:31> CCU Objective - Vital Signs / Intake & Output Vital Signs (Last 4 hours): Vital Signs Pulse Resp BP Pulse Ox 02/18/17 15:30 71 39 H 97 02/18/17 15:20 62 22 97 02/18/17 15:10 64 14 97 02/18/17 15:00 63 24 156/60 H 96 02/18/17 14:50 62 19 97 02/18/17 14:40 64 20 97 02/18/17 14:30 65 24 97 02/18/17 14:20 62 21 97 02/18/17 14:10 65 16 95 02/18/17 14:01 62 19 136/59 L 96 02/18/17 14:00 62 21 96 02/18/17 13:50 69 22 97 02/18/17 13:40 72 28 H 96 Intake and Output (Last 8hrs): Intake & Output 02/18/17 02/18/17 02/18/17 06:59 14:59 22:59 Intake Total 1020 Output Total 800 Balance 220 Weight 148 lb Intake: IV 960 Right Antecubital 960 Oral 60 Output: Urine 800 Urine, Voided 800 Other: Voiding Method Urinal # Bowel Movements 0 - Medications Active Medications: Active Medications Generic Name Dose Route Start Last Admin Trade Name Freq PRN Reason Stop Dose Admin Atenolol 25 mg 02/18/17 10:00 02/18/17 09:25 Tenormin PO 25 mg DAILY TALIA Administration Sodium Chloride 1,000 mls @ 100 mls/hr 02/18/17 16:30 Sodium Chloride 0.9% IV .Q10H TALIA Methylprednisolone 20 mg 02/17/17 12:30 02/18/17 09:26 Solu-Medrol IVP 20 mg Q12 TALIA Administration Tolvaptan 15 mg 02/18/17 10:00 02/18/17 12:12 Samsca PO 02/20/17 08:38 15 mg DAILY TALIA Administration - Patient Studies Lab Studies: Microbiology Studies 02/17/17 14:00 MRSA Culture (Admit) - Final Nose MRSA NOT DETECTED 02/17/17 13:00 Blood Culture - Preliminary Blood-Venous NO GROWTH AFTER 24 HOURS 02/17/17 13:00 Blood Culture - Preliminary Blood-Venous NO GROWTH AFTER 24 HOURS Lab Studies 02/18/17 02/18/17 02/18/17 Range/Units 13:55 10:00 09:30 WBC (4.5-11.0) 10^3/ul RBC (3.5-6.1) 10^6/uL Hgb (14.0-18.0) gm/dL Hct (42.0-52.0) % MCV (80.0-105.0) fL MCH (25.0-35.0) pg MCHC (31.0-37.0) g/dl RDW (11.5-14.5) % Plt Count (120.0-450.0) 10^3/uL MPV (7.0-11.0) fl Sodium 121 L (132-148) mmol/L Potassium 4.6 (3.6-5.0) mmol/L Chloride 94 L (98-107) mmol/L Carbon Dioxide 20 L (21-33) mmol/L Anion Gap 12 (10-20) BUN 13 (7-21) mg/dL Creatinine 0.6 (0.5-1.4) mg/dL Est GFR ( Amer) > 60 Est GFR (Non-Af Amer) > 60 Random Glucose 142 H (70-110) mg/dL Serum Osmolality (271-296) mosm/kg Calcium 8.5 (8.4-10.5) mg/dL Total Bilirubin (0.2-1.3) mg/dL AST (15-59) U/L ALT (7-56) U/L Alkaline Phosphatase (38-133) U/L Troponin I ng/mL Total Protein (5.8-8.3) g/dL Albumin (3.0-4.8) g/dL Globulin gm/dL Albumin/Globulin Ratio (1.1-1.8) Thyroxine (T4) 8.7 (5.5-11.0) ug/dL Total T3 1.03 (0.97-1.69) ng/mL TSH 3rd Generation 0.16 L (0.46-4.68) mIU/mL Urine Osmolality 452 (50-645) mosm/kg Ur Random Sodium meq/L Ur Random Potassium meq/L 02/18/17 02/18/17 02/18/17 Range/Units 08:35 08:01 05:30 WBC (4.5-11.0) 10^3/ul RBC (3.5-6.1) 10^6/uL Hgb (14.0-18.0) gm/dL Hct (42.0-52.0) % MCV (80.0-105.0) fL MCH (25.0-35.0) pg MCHC (31.0-37.0) g/dl RDW (11.5-14.5) % Plt Count (120.0-450.0) 10^3/uL MPV (7.0-11.0) fl Sodium 120 L 120 L (132-148) mmol/L Potassium 4.4 4.5 (3.6-5.0) mmol/L Chloride 93 L 92 L (98-107) mmol/L Carbon Dioxide 21 22 (21-33) mmol/L Anion Gap 10 11 (10-20) BUN 11 11 (7-21) mg/dL Creatinine 0.6 0.6 (0.5-1.4) mg/dL Est GFR ( Amer) > 60 > 60 Est GFR (Non-Af Amer) > 60 > 60 Random Glucose 119 H 126 H (70-110) mg/dL Serum Osmolality (271-296) mosm/kg Calcium 8.2 L 8.3 L (8.4-10.5) mg/dL Total Bilirubin 0.6 (0.2-1.3) mg/dL AST 39 (15-59) U/L ALT 36 (7-56) U/L Alkaline Phosphatase 40 (38-133) U/L Troponin I ng/mL Total Protein 6.2 (5.8-8.3) g/dL Albumin 3.4 (3.0-4.8) g/dL Globulin 2.8 gm/dL Albumin/Globulin Ratio 1.2 (1.1-1.8) Thyroxine (T4) (5.5-11.0) ug/dL Total T3 (0.97-1.69) ng/mL TSH 3rd Generation (0.46-4.68) mIU/mL Urine Osmolality (50-645) mosm/kg Ur Random Sodium 105 meq/L Ur Random Potassium meq/L 02/18/17 02/18/17 02/17/17 Range/Units 05:30 02:30 22:20 WBC 8.5 D (4.5-11.0) 10^3/ul RBC 4.27 (3.5-6.1) 10^6/uL Hgb 13.3 L (14.0-18.0) gm/dL Hct 36.6 L (42.0-52.0) % MCV 85.7 (80.0-105.0) fL MCH 31.1 (25.0-35.0) pg MCHC 36.3 (31.0-37.0) g/dl RDW 13.0 (11.5-14.5) % Plt Count 290 (120.0-450.0) 10^3/uL MPV 8.4 (7.0-11.0) fl Sodium 118 L* 115 L* (132-148) mmol/L Potassium 4.5 5.0 (3.6-5.0) mmol/L Chloride 92 L 88 L (98-107) mmol/L Carbon Dioxide 20 L 21 (21-33) mmol/L Anion Gap 11 11 (10-20) BUN 12 16 (7-21) mg/dL Creatinine 0.6 0.7 (0.5-1.4) mg/dL Est GFR ( Amer) > 60 > 60 Est GFR (Non-Af Amer) > 60 > 60 Random Glucose 131 H 117 H (70-110) mg/dL Serum Osmolality (271-296) mosm/kg Calcium 8.4 8.5 (8.4-10.5) mg/dL Total Bilirubin (0.2-1.3) mg/dL AST (15-59) U/L ALT (7-56) U/L Alkaline Phosphatase (38-133) U/L Troponin I < 0.01 ng/mL Total Protein (5.8-8.3) g/dL Albumin (3.0-4.8) g/dL Globulin gm/dL Albumin/Globulin Ratio (1.1-1.8) Thyroxine (T4) (5.5-11.0) ug/dL Total T3 (0.97-1.69) ng/mL TSH 3rd Generation (0.46-4.68) mIU/mL Urine Osmolality (50-645) mosm/kg Ur Random Sodium meq/L Ur Random Potassium meq/L 02/17/17 02/17/17 02/17/17 Range/Units 22:20 18:00 16:42 WBC (4.5-11.0) 10^3/ul RBC (3.5-6.1) 10^6/uL Hgb (14.0-18.0) gm/dL Hct (42.0-52.0) % MCV (80.0-105.0) fL MCH (25.0-35.0) pg MCHC (31.0-37.0) g/dl RDW (11.5-14.5) % Plt Count (120.0-450.0) 10^3/uL MPV (7.0-11.0) fl Sodium 115 L* (132-148) mmol/L Potassium 4.6 (3.6-5.0) mmol/L Chloride 87 L (98-107) mmol/L Carbon Dioxide 21 (21-33) mmol/L Anion Gap 12 (10-20) BUN 14 (7-21) mg/dL Creatinine 0.7 (0.5-1.4) mg/dL Est GFR ( Amer) > 60 Est GFR (Non-Af Amer) > 60 Random Glucose 187 H (70-110) mg/dL Serum Osmolality 248 L (271-296) mosm/kg Calcium 8.6 (8.4-10.5) mg/dL Total Bilirubin (0.2-1.3) mg/dL AST (15-59) U/L ALT (7-56) U/L Alkaline Phosphatase (38-133) U/L Troponin I ng/mL Total Protein (5.8-8.3) g/dL Albumin (3.0-4.8) g/dL Globulin gm/dL Albumin/Globulin Ratio (1.1-1.8) Thyroxine (T4) (5.5-11.0) ug/dL Total T3 (0.97-1.69) ng/mL TSH 3rd Generation (0.46-4.68) mIU/mL Urine Osmolality (50-645) mosm/kg Ur Random Sodium meq/L Ur Random Potassium 55.3 meq/L Laboratory Results - last 24 hr 02/17/17 02/17/17 02/17/17 16:42 18:00 22:20 WBC RBC Hgb Hct MCV MCH MCHC RDW Plt Count MPV Sodium 115 L* Potassium 4.6 Chloride 87 L Carbon Dioxide 21 Anion Gap 12 BUN 14 Creatinine 0.7 Est GFR ( Amer) > 60 Est GFR (Non-Af Amer) > 60 Random Glucose 187 H Serum Osmolality 248 L Calcium 8.6 Total Bilirubin AST ALT Alkaline Phosphatase Troponin I Total Protein Albumin Globulin Albumin/Globulin Ratio Thyroxine (T4) Total T3 TSH 3rd Generation Urine Osmolality Ur Random Sodium Ur Random Potassium 55.3 02/17/17 02/18/17 02/18/17 22:20 02:30 05:30 WBC 8.5 D RBC 4.27 Hgb 13.3 L Hct 36.6 L MCV 85.7 MCH 31.1 MCHC 36.3 RDW 13.0 Plt Count 290 MPV 8.4 Sodium 115 L* 118 L* Potassium 5.0 4.5 Chloride 88 L 92 L Carbon Dioxide 21 20 L Anion Gap 11 11 BUN 16 12 Creatinine 0.7 0.6 Est GFR ( Amer) > 60 > 60 Est GFR (Non-Af Amer) > 60 > 60 Random Glucose 117 H 131 H Serum Osmolality Calcium 8.5 8.4 Total Bilirubin AST ALT Alkaline Phosphatase Troponin I < 0.01 Total Protein Albumin Globulin Albumin/Globulin Ratio Thyroxine (T4) Total T3 TSH 3rd Generation Urine Osmolality Ur Random Sodium Ur Random Potassium 02/18/17 02/18/17 02/18/17 05:30 08:01 08:35 WBC RBC Hgb Hct MCV MCH MCHC RDW Plt Count MPV Sodium 120 L 120 L Potassium 4.5 4.4 Chloride 92 L 93 L Carbon Dioxide 22 21 Anion Gap 11 10 BUN 11 11 Creatinine 0.6 0.6 Est GFR ( Amer) > 60 > 60 Est GFR (Non-Af Amer) > 60 > 60 Random Glucose 126 H 119 H Serum Osmolality Calcium 8.3 L 8.2 L Total Bilirubin 0.6 AST 39 ALT 36 Alkaline Phosphatase 40 Troponin I Total Protein 6.2 Albumin 3.4 Globulin 2.8 Albumin/Globulin Ratio 1.2 Thyroxine (T4) Total T3 TSH 3rd Generation Urine Osmolality Ur Random Sodium 105 Ur Random Potassium 02/18/17 02/18/17 02/18/17 09:30 10:00 13:55 WBC RBC Hgb Hct MCV MCH MCHC RDW Plt Count MPV Sodium 121 L Potassium 4.6 Chloride 94 L Carbon Dioxide 20 L Anion Gap 12 BUN 13 Creatinine 0.6 Est GFR ( Amer) > 60 Est GFR (Non-Af Amer) > 60 Random Glucose 142 H Serum Osmolality Calcium 8.5 Total Bilirubin AST ALT Alkaline Phosphatase Troponin I Total Protein Albumin Globulin Albumin/Globulin Ratio Thyroxine (T4) 8.7 Total T3 1.03 TSH 3rd Generation 0.16 L Urine Osmolality 452 Ur Random Sodium Ur Random Potassium Critical Care Progress Note - Nutrition Nutrition: Nutrition Category Date Time Status Regular Diet [DIET] Diets 02/17/17 Dinner Ordered Attending/Attestation - Attestation I have personally seen and examined this patient.: Yes I have fully participated in the care of the patient.: Yes I have reviewed all pertinent clinical information: Yes Notes (Text): 02/18/17 17:30 81 y/o M admitted to the ICU due to hyponatremia likely hypovolemic was given a combination of 3% saline 75 + 160 ml + 1L n.S Sodium also increased w/ NA tabs on Normal saline 100ml/hr with an improving trend. No change in mental status or seizures. Tolerating diet . nephrology following along for SIADH consideration. dvt p ppi cc time 55 min
--- NOTE | 2017-02-18 16:22 | CARD ---
APPROVED REPORT EXAM: Two-dimensional and M-mode echocardiogram with Doppler and color Doppler. INDICATION Congestive Heart Failure 2D DIMENSIONS Left Atrium (2D)4.3 (1.6-4.0cm)IVSd1.0 (0.7-1.1cm) LVDd4.7 (3.9-5.9cm)PWd1.1 (0.7-1.1cm) LVDs3.1 (2.5-4.0cm)FS (%) 34.2 % LVEF (%)63.0 (>50%) M-Mode DIMENSIONS Aortic Root3.40 (2.2-3.7cm)Aortic Cusp Exc.1.50 (1.5-2.0cm) Aortic Valve AoV Peak Hkajzkij636.0cm/González Peak GR.14mmHg Mitral Valve MV E Pyhciwne35.5cm/sMV A Rpmaynaa59.0cm/sE/A ratio1.0 TDI Lateral E' Peak V13.70cm/sMedial E' Peak V9.55cm/sE/Lateral E'5.4 E/Medial E'7.8 Pulmonary Valve PV Peak Szdkwqeo92.4cm/sPV Peak Grad.3mmHg Tricuspid Valve TR Peak [id number]/sRAP [id number] Peak Gr.35mmHg [id number] LEFT VENTRICLE The left ventricle is normal size. There is normal left ventricular wall thickness. The left ventricular function is normal. The left ventricular ejection fraction is within the normal range. There is normal LV segmental wall motion. RIGHT VENTRICLE The right ventricle is normal size. There is normal right ventricular wall thickness. The right ventricular systolic function is normal. ATRIA The left atrium is mildly dilated. The right atrium is mildly dilated. AORTIC VALVE The aortic valve is not well visualized. No aortic regurgitation is present. There is no aortic valvular stenosis. MITRAL VALVE The mitral valve is normal in structure. There is no mitral valve regurgitation noted. TRICUSPID VALVE There is mild tricuspid regurgitation. There is mild to moderate pulmonary hypertension. GREAT VESSELS The aortic root is normal in size. The IVC is normal in size and collapses >50% with inspiration. <Conclusion> The left ventricle is normal size. There is normal left ventricular wall thickness. The left ventricular function is normal. The left ventricular ejection fraction is within the normal range. There is normal LV segmental wall motion. There is mild tricuspid regurgitation. There is mild to moderate pulmonary hypertension.
[2017-02-18] MEDS ORDERED: Sodium Chloride 0.9% 1,000 ML IV SCH (16:30)
[2017-02-18 18:40] LABS: BLOOD UREA NITROGEN 16 mg/dL (7-21); CALCIUM 9.3 mg/dL (8.4-10.5); CARBON DIOXIDE 23 mmol/L (21-33); CHLORIDE 101 mmol/L (98-107); GFR AFRICAN-AMERICAN > 60; GLUCOSE,RANDOM 116 mg/dL (70-110); POTASSIUM 4.9 mmol/L (3.6-5.0); SODIUM 132 mmol/L (132-148)
[2017-02-18 22:22] LABS: BLOOD UREA NITROGEN 18 mg/dL (7-21); CALCIUM 8.7 mg/dL (8.4-10.5); CARBON DIOXIDE 24 mmol/L (21-33); CHLORIDE 101 mmol/L (98-107); GFR AFRICAN-AMERICAN > 60; GLUCOSE,RANDOM 121 mg/dL (70-110); POTASSIUM 4.6 mmol/L (3.6-5.0); SODIUM 130 mmol/L (132-148)
[2017-02-18] MEDS: Sodium Chloride 0.9% 1,000 ML IV SCH (23:46)
[2017-02-19] MEDS: Sodium Chloride 0.9% 1,000 ML IV SCH ×2 (06:19→14:37)
[2017-02-19 07:02] LABS: HEMATOCRIT 42.3 % (42.0-52.0); MEAN CELL VOLUME 88.3 fL (80.0-105.0); MEAN CORPUSCULAR HEMOGLOBIN 30.7 pg (25.0-35.0); MEAN CORPUSCULAR HGB CONC 34.8 g/dl (31.0-37.0); MEAN PLATELET VOLUME 8.8 fl (7.0-11.0); RED CELL DISTRIBUTION WIDTH 13.7 % (11.5-14.5); WHITE BLOOD COUNT 11.7 10^3/ul (4.5-11.0)
[2017-02-19 07:37] LABS: ALB/GLOB RATIO 1.2 (1.1-1.8); ALKALINE PHOSPHATASE 38 U/L (38-133); ALT/SGPT 29 U/L (7-56); AST/SGOT 39 U/L (15-59); BILIRUBIN,TOTAL 0.7 mg/dL (0.2-1.3); BLOOD UREA NITROGEN 16 mg/dL (7-21); CALCIUM 8.7 mg/dL (8.4-10.5); CARBON DIOXIDE 22 mmol/L (21-33); CHLORIDE 103 mmol/L (98-107); GFR AFRICAN-AMERICAN > 60; GLUCOSE,RANDOM 115 mg/dL (70-110); SODIUM 133 mmol/L (132-148); TOTAL PROTEIN 6.6 g/dL (5.8-8.3); URIC ACID 3.3 mg/dL (3.5-8.5)
[2017-02-19 07:40] LABS: POTASSIUM 4.5 mmol/L (3.6-5.0)
--- NOTE | 2017-02-19 08:30 | PN ---
DATE: 02/19/2017 SUBJECTIVE: The patient has no complaints of any chest pain or shortness of breath. He says he feel s weak. Has difficulty ambulating. PHYSICAL EXAMINATION: VITAL SIGNS: Temperature 98.7, pulse is 77, blood pressure 134/70, respirations 18. GENERAL: The patient comfortable, in no acute distress. HEENT: Anicteric sclerae. Moist mucosa. NECK: No JVD or adenopathy. CARDIAC: S1/S2. No murmurs. No rubs. Regular. RESPIRATORY: Clear to auscultation bilaterally. No wheezes, rales, or rhonchi. Good air entry. ABDOMEN: Bowel sounds are positive, soft, nontender, and nondistended. EXTREMITIES: No edema. Has 1+ pulses. LABORATORY DATA: White count 11.7, hemoglobin 14.7. Echo done shows LV is was normal size. LV wall thickness is normal. There is [id number] pulmo nary hypertension. ASSESSMENT: 1. Hyponatremia secondary to syndrome of inappropriate antidiuretic hormone. 2. Shingles. 3. Coronary artery disease. 4. Benign prostatic hypertrophy. 5. The CT of the head that showed a small coalescent area of petechial hemorrhage. I will get an MR I. The patient was placed on normal saline. Patient's sodium has increased significantly since yesterda y. I will place the patient on D5W to help slow down the patient's elevated sodium. The patient has low uric acid, had hyponatremia and hyposmolarity on blood work. Urine had indicated a high urine o smolarity in urine sodium. This is consistent with syndrome of inappropriate antidiuretic hormone. I am not sure if this is from the shingles or from the acyclovir, which is not commonly known to caus e hyponatremia. He does have an abnormal CT scan. I will get an MRI. I will also get Dr. Hughes to evaluate. The patient is not known to have a malignancy. He has a chest x-ray that was done that di d not show any significant abnormalities. I will hold off on his aspirin because of the abnormal CT scan. He is getting physical therapy. I will see if he qualifies for transitional care unit. If he does, he is cleared to go to the transitional care unit. Augustin Adams MD cc: [id number] TT: 02/19/2017 08:29:28 Confirmation # [id number] Dictation # [id number] jn
[2017-02-19] MEDS: MethylPREDNISolone 40 mg Vial IVP SCH ×2 (09:31→21:34)
[2017-02-20 07:44] VITALS: RESP 20
[2017-02-20 08:20] LABS: ALB/GLOB RATIO 1.2 (1.1-1.8); ALKALINE PHOSPHATASE 39 U/L (38-133); ALT/SGPT 34 U/L (7-56); AST/SGOT 31 U/L (15-59); BILIRUBIN,TOTAL 0.8 mg/dL (0.2-1.3); BLOOD UREA NITROGEN 19 mg/dL (7-21); CALCIUM 8.7 mg/dL (8.4-10.5); CARBON DIOXIDE 25 mmol/L (21-33); CHLORIDE 97 mmol/L (98-107); GFR AFRICAN-AMERICAN > 60; GLUCOSE,RANDOM 85 mg/dL (70-110); MAGNESIUM 2.2 mg/dL (1.7-2.2); POTASSIUM 4.1 mmol/L (3.6-5.0); SODIUM 129 mmol/L (132-148); TOTAL PROTEIN 5.9 g/dL (5.8-8.3)
[2017-02-20] MEDS: MethylPREDNISolone 40 mg Vial IVP SCH (09:36)
[2017-02-20] MEDS ORDERED: levoFLOXacin 500 mg in D5W 500 MG/100 ML BAG IVPB SCH (10:00)
[2017-02-20] MEDS ORDERED: Sodium Chloride 0.9% 1,000 ML IV SCH (11:15)
[2017-02-20 12:06] LABS: CHOLESTEROL 177 mg/dL (130-200)
--- NOTE | 2017-02-20 12:44 | PN ---
DATE: 02/20/2017 The patient is an 81-year-old Afghan male complained of generalized weakness, complained of difficult y sleeping, had multiple falls at home, still not feeling well, has generalized weakness. PHYSICAL EXAMINATION: VITAL SIGNS: He is afebrile, pulse 50, respirations 19, blood pressure 156/78. LUNGS: Bilateral fair airflow, no rhonchi or crackle. HEART: S1, S2 audible. ABDOMEN: Soft, nontender, no rebound, no guarding. NEUROLOGIC: He is awake and alert, able to communicate. LABORATORY: Sodium 129, potassium 4.1, chloride 97, CO2 25, BUN 19, creatinine 0.7, blood sugar of 8 5, TSH 0.16. Urinalysis ____ is 15. Urine positive for gram-positive cocci. Blood cultures are neg ative. ASSESSMENT AND PLAN: 1. Hyponatremia seems to be improving. 2. Gram positive urinary tract infection. 3. Hypertension. 4. Benign prostatic hypertrophy. 5. Insomnia. PLAN: I will start patient on Levaquin. He is on low dose steroids, continue on atenolol. Out of b ed to chair, physical therapy evaluation has been requested. We will follow up electrolyte, CBC and CMP in a.m. Jesusita Cleveland MD cc: [phone] TT: 02/20/2017 12:43:22 Confirmation # [id number] Dictation # [id number] benny
[2017-02-20 17:49] VITALS: BP 159/78; PULSE 52; TEMP 99.6; O2SAT 94
== END 2017-02-20 18:40 | DRG 643 ==
LOC: ED 09:54 → ERH 12:04 → CCU 14:05 → 3RNO 02-19 11:08
PROVIDERS: ADMIT Internal Medicine Nephrology; ATTEND Internal Medicine Nephrology
DX: E22.2 Syndrome of inappropriate secretion of antidiuretic hormone (principal); I61.0 Nontraumatic intracerebral hemorrhage in hemisphere, subcortical; G23.8 Other specified degenerative diseases of basal ganglia; I10 Essential (primary) hypertension; I25.10 Atherosclerotic heart disease of native coronary artery without angina pectoris; B36.9 Superficial mycosis, unspecified; N39.0 Urinary tract infection, site not specified; W19.XXXA Unspecified fall, initial encounter; E87.8 Other disorders of electrolyte and fluid balance, not elsewhere classified; R00.1 Bradycardia, unspecified; B02.9 Zoster without complications; G62.9 Polyneuropathy, unspecified; E86.0 Dehydration; R62.7 Adult failure to thrive; E86.1 Hypovolemia; G47.00 Insomnia, unspecified; Z85.828 Personal history of other malignant neoplasm of skin; N40.0 Benign prostatic hyperplasia without lower urinary tract symptoms; Z95.5 Presence of coronary angioplasty implant and graft; Z79.899 Other long term (current) drug therapy; Y92.009 Unspecified place in unspecified non-institutional (private) residence as the place of occurrence of the external cause; Y92.410 Unspecified street and highway as the place of occurrence of the external cause; R26.81 Unsteadiness on feet; Z88.0 Allergy status to penicillin; R40.2412 Glasgow coma scale score 13-15, at arrival to emergency department; B34.9 Viral infection, unspecified; I44.0 Atrioventricular block, first degree; B96.89 Other specified bacterial agents as the cause of diseases classified elsewhere; Z53.20 Procedure and treatment not carried out because of patient's decision for unspecified reasons

== ENCOUNTER 2017-02-20 18:33 | Inpatient (IN) | payer OTHER, BC ==
[2017-02-20] MEDS: Sodium Chloride 0.9% 1,000 ML IV SCH (19:02)
[2017-02-20] MEDS: MethylPREDNISolone 40 mg Vial IVP SCH (21:39)
[2017-02-20 22:01] VITALS: BMI 24.8
[2017-02-20] MEDS ORDERED: Pneumococcal 23-Valent Vaccine IM ONE (22:01)
[2017-02-21] MEDS: levoFLOXacin 500 mg in D5W 500 MG/100 ML BAG IVPB SCH (05:42)
[2017-02-21 09:23] LABS: ALB/GLOB RATIO 1.3 (1.1-1.8); ALKALINE PHOSPHATASE 44 U/L (38-133); ALT/SGPT 34 U/L (7-56); AST/SGOT 31 U/L (15-59); BLOOD UREA NITROGEN 18 mg/dL (7-21); CALCIUM 8.7 mg/dL (8.4-10.5); CARBON DIOXIDE 22 mmol/L (21-33); CHLORIDE 94 mmol/L (95-110); GFR AFRICAN-AMERICAN > 60; GLUCOSE,RANDOM 118 mg/dL (70-110); MAGNESIUM 2.1 mg/dL (1.7-2.2); POTASSIUM 4.2 mmol/L (3.6-5.0); SODIUM 124 mmol/L (132-148); TOTAL PROTEIN 6.3 g/dL (5.8-8.3)
[2017-02-21] MEDS: MethylPREDNISolone 40 mg Vial IVP SCH (09:42)
[2017-02-21] MEDS ORDERED: levoFLOXacin 500 mg in D5W 500 MG/100 ML BAG IVPB SCH (10:00)
[2017-02-21] MEDS ORDERED: Magnesium Citrate Oral SOL (300 ml) PO ONE (10:23)
[2017-02-21 12:05] LABS: FREE T4 1.74 ng/dL (0.78-2.19)
[2017-02-21 12:19] LABS: THYROID STIMULATING HORMONE 0.17 mIU/mL (0.46-4.68)
[2017-02-21] MEDS: Sodium Chloride 0.9% 1,000 ML IV SCH (15:47)
--- NOTE | 2017-02-21 16:28 | HP ---
HISTORY OF PRESENT ILLNESS: The patient is an 81-year-old Lao male, who was admitted by Dr. Mary parker on 02/18/2017 with complaint of generalized weakness, poor oral intake. He recently has shingles and was having discomfort because of that. He has a past medical history significant for coronary a rtery disease, history of skin cancer. He was found to be hyponatremic, has been on IV fluid, did we ll. He has been deconditioned, so transferred to TCU for close monitoring and physical therapy. ALLERGIES: HE IS ALLERGIC TO PENICILLIN. SOCIAL HISTORY: Denies smoking, drinking or alcohol use. MEDICATIONS AT HOME: He is on Flomax 0.4 daily, prednisone 50 mg daily, atenolol 25 daily, acyclovir 800 three times a day. REVIEW OF SYSTEMS: Significant for generalized weakness, poor oral intake and no energy. PHYSICAL EXAMINATION: VITAL SIGNS: He is afebrile, pulse 57, respirations 17, blood pressure . LUNGS: Bilateral fair airflow, no rhonchi or crackle. HEART: S1, S2 audible. ABDOMEN: Soft, nontender, no rebound, no guarding. NEUROLOGIC: The patient is awake and alert, communicative. Moves all extremities. LABORATORY EXAMINATION: Sodium 124, potassium 4.2, chloride 94, CO2 of 22, BUN 18, creatinine 0.6, b lood sugar 118. LFTs are within normal limits. PSA is 3. TSH is 0.17. ASSESSMENT: 1. Generalized weakness. 2. Postherpetic neuralgia on the left arm. 3. Hyponatremia. 4. Benign prostatic hypertrophy versus carcinoma of prostate. PLAN: Continue patient on Flomax. He has gram-positive cocci in the urine. For that reason, he is on Levaquin. Continue him on atenolol, continue on Ambien as needed and continue on IV saline and en courage ambulation and physical therapy. Jesusita Cleveland MD cc: [phone] TT: 02/21/2017 16:28:13 ln
[2017-02-22] MEDS: levoFLOXacin 500 mg in D5W 500 MG/100 ML BAG IVPB SCH (04:59)
--- NOTE | 2017-02-22 07:55 | PN ---
DATE: 02/22/2017 SUBJECTIVE: The patient has no complaints of any chest pain, no shortness of breath. He says he is weak. He is having difficulty in ambulating. PHYSICAL EXAMINATION: VITAL SIGNS: Temperature is 98.7, pulse of 60, blood pressure is 146/68, respiration is 17. GENERAL: The patient comfortable, in no acute distress. HEENT: Anicteric sclerae. Moist mucosa. NECK: No JVD or adenopathy. CARDIAC: S1/S2. No murmurs. No rubs. Regular. RESPIRATORY: Clear to auscultation bilaterally. No wheezes, rales, or rhonchi. Good air entry. ABDOMEN: Bowel sounds are positive, soft, nontender, and nondistended. EXTREMITIES: No edema. Has 1+ pulses. LABORATORIES: Sodium is 124. ASSESSMENT: 1. Hyponatremia, secondary to syndrome of inappropriate antidiuretic hormone. 2. PENICILLIN ALLERGY. 3. Coronary artery disease. 4. Shingles, improved. 5. Benign prostatic hypertrophy. CT of the head shows petechial hemorrhage. The patient is currently comfortable, is on Ambien for sleep, is receiving Levaquin for antibiotics. He is on atenolol. He is going to continue with his Flomax. He is on a regular diet. CONDITION: Stable. ACTIVITY: Increase as tolerated. Augustin Adasm MD cc: [id number] TT: 02/22/2017 07:55:13 Confirmation # [id number] Dictation # [id number] en
[2017-02-22 10:40] LABS: BLOOD UREA NITROGEN 17 mg/dL (7-21); CALCIUM 8.3 mg/dL (8.4-10.5); CARBON DIOXIDE 25 mmol/L (21-33); CHLORIDE 89 mmol/L (98-107); GFR AFRICAN-AMERICAN > 60; GLUCOSE,RANDOM 100 mg/dL (70-110); POTASSIUM 4.1 mmol/L (3.6-5.0); SODIUM 120 mmol/L (132-148)
--- NOTE | 2017-02-22 18:32 | CON ---
DATE: 02/22/2017 HISTORY OF PRESENT ILLNESS: This is an 81-year-old Eritrean male admitted here with complaint of gener alized weakness and poor intake and recently developed shingles 2-3 weeks ago, and was having discomf ort of the left upper extremity. Also has a past medical history of coronary artery disease, history of skin cancer. Was found to be hyponatremic on the floor, transferred here to [facility] for rehab. Jarocho led to evaluate the patient for abnormal CAT scan. PAST MEDICAL HISTORY: As above. SOCIAL HISTORY: Does not smoke and drinks occasionally. ALLERGIES: PENICILLIN. REVIEW OF SYSTEMS: A 10-point review of system was negative except generalized weakness and shingles . PHYSICAL EXAMINATION: HEENT: Normocephalic, atraumatic. NECK: Supple. NEUROLOGIC: Awake, alert, oriented x 3. No aphasia. Cranial nerves II-XII were tested. Pupils lanette ctive. EOM intact. Visual del real full. No facial asymmetry. Tongue midline. Motor examination: Moves all the extremities equally. Tone normal. Deep tendon reflexes 1+. Both plantars downgoing. Sensory appears intact. Cerebellar, gait deferred. IMPRESSION: The patient has generalized weakness and hyponatremia and shingles on the left arm, and the patient transferred to [facility] for further workup. Abnormal CAT scan was seen. I ordered the MRI o f the head with and without gadolinium. Further management after the results of above tests. Contin ue physical therapy. Sebas Hughes MD cc: [id number] TT: 02/22/2017 18:31:53 Confirmation # [id number] Dictation # [id number] linda
[2017-02-23] MEDS: Tolvaptan 15 MG TAB PO SCH (10:01)
[2017-02-24 06:40] LABS: MEAN CELL VOLUME 86.5 fL (80.0-105.0); MEAN CORPUSCULAR HGB CONC 35.9 g/dl (31.0-37.0); MEAN PLATELET VOLUME 8.6 fl (7.0-11.0); RED CELL DISTRIBUTION WIDTH 13.5 % (11.5-14.5); WHITE BLOOD COUNT 10.3 10^3/ul (4.5-11.0)
[2017-02-24 06:58] LABS: ALB/GLOB RATIO 1.3 (1.1-1.8); ALKALINE PHOSPHATASE 48 U/L (38-133); ALT/SGPT 35 U/L (7-56); AST/SGOT 30 U/L (15-59); BILIRUBIN,TOTAL 0.7 mg/dL (0.2-1.3); BLOOD UREA NITROGEN 22 mg/dL (7-21); CALCIUM 9.1 mg/dL (8.4-10.5); CARBON DIOXIDE 22 mmol/L (21-33); CHLORIDE 99 mmol/L (98-107); GFR AFRICAN-AMERICAN > 60; GLUCOSE,RANDOM 109 mg/dL (70-110); POTASSIUM 4.5 mmol/L (3.6-5.0); SODIUM 128 mmol/L (132-148); TOTAL PROTEIN 6.6 g/dL (5.8-8.3)
--- NOTE | 2017-02-24 09:50 | PN ---
DATE: 02/24/2017 SUBJECTIVE: The patient has no complaints of any chest pain, no shortness of breath, no headaches. He says he did much better with physical therapy yesterday. PHYSICAL EXAMINATION: VITAL SIGNS: Temperature is 97.4, pulse of 59, blood pressure is 121/60, respirations 18. GENERAL: The patient is comfortable, in no acute distress. HEENT: Anicteric sclerae. Moist mucosa. NECK: No JVD or adenopathy. CARDIAC: S1/S2. No murmurs. No rubs. Regular. RESPIRATORY: Clear to auscultation bilaterally. No wheezes, rales, or rhonchi. Good air entry. ABDOMEN: Bowel sounds are positive, soft, nontender, and nondistended. EXTREMITIES: No edema. Has 1+ pulses. LABORATORIES: The patient's sodium is 128. ASSESSMENT: 1. Hyponatremia, secondary to syndrome of inappropriate antidiuretic hormone. 2. PENICILLIN ALLERGY. 3. Coronary artery disease. 4. Shingles, resolved. 5. Benign prostatic hypertrophy. PLAN: The patient is currently comfortable, is receiving Flomax, is going to continue with atenolol. The patient is on Ambien. The patient is improving with physical therapy. We will continue. Augustin Adams MD cc: [phone] TT: 02/24/2017 09:49:14 Confirmation # [id number] Dictation # [id number] en
[2017-02-24] MEDS: Tolvaptan 15 MG TAB PO SCH (09:57)
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
[2017-02-25 08:35] LABS: BLOOD UREA NITROGEN 21 mg/dL (7-21); CALCIUM 9.1 mg/dL (8.4-10.5); CARBON DIOXIDE 26 mmol/L (21-33); CHLORIDE 98 mmol/L (98-107); GFR AFRICAN-AMERICAN > 60; GLUCOSE,RANDOM 105 mg/dL (70-110); POTASSIUM 4.6 mmol/L (3.6-5.0); SODIUM 131 mmol/L (132-148)
--- NOTE | 2017-02-25 11:49 | PN ---
DATE: 02/25/2017 DATE: 02/25/2017 SUBJECTIVE: The patient has no complaints of any chest pain. He has no headaches, no dizziness. He was able to walk 200 feet with physical therapy yesterday. PHYSICAL EXAMINATION: VITAL SIGNS: Temperature is 98.4, pulse 69, blood pressure 126/66, respirations 18. GENERAL: The patient is comfortable, in no acute distress. HEENT: Anicteric sclerae. Moist mucosa. NECK: No JVD or adenopathy. CARDIAC: S1/S2. No murmurs. No rubs. Regular. RESPIRATORY: Clear to auscultation bilaterally. No wheezes, rales, or rhonchi. Good air entry. ABDOMEN: Bowel sounds are positive, soft, nontender, and nondistended. EXTREMITIES: No edema. Has 1+ pulses. LABORATORY DATA: Sodium is 131. ASSESSMENT: 1. Hyponatremia secondary to syndrome of inappropriate antidiuretic hormone secretion. 2. Coronary artery disease. 3. Gait dysfunction. 4. PENICILLIN ALLERGY. 5. Shingles, resolved. 6. Benign prostatic hypertrophy. PLAN: The patient is currently on atenolol. This will be continued. He is going to continue on his Flomax. He is on Ambien for sleep. He is on a regular diet. The patient's sodium is improved. I did speak to the patient's son at length about the patient's diagnosis and plan of care. The patient is going to need to go to subacute rehab, possibly [facility]. He is agreeable, as well as the patie nt. I did talk to the staff to have social welfare research worker involved. He is cleared to be discharged over the weekend if he gets ____. Augustin Adams MD cc: [phone] TT: 02/25/2017 11:48:46 Confirmation # [id number] Dictation # [id number] benny
--- NOTE | 2017-02-25 23:52 | CP.PCM.PN ---
Subjective - Date & Time of Evaluation Date of Evaluation: 02/25/17 Time of Evaluation: 09:00 - Subjective Subjective: Complaining of weakness. Unable to ambulate. CT chest abdomen, pelvis did not show any mass lesion. CT head showed petechial hemorrage in basal ganglion. No cough, no chest pain. Post herpetic neuralgia improving. Objective - Vital Signs/Intake and Output Vital Signs (last 24 hours): Temp Pulse Resp BP Pulse Ox 98.5 F 67 14 113/63 98 02/25/17 16:00 02/25/17 16:00 02/25/17 16:00 02/25/17 16:00 02/25/17 16:00 Intake and Output: 02/25/17 02/26/17 18:59 06:59 Intake Total 420 Balance 420 - Medications Medications: Current Medications Atenolol (Tenormin) 25 mg PO DAILY TALIA PRN Reason: Protocol Last Admin: 02/25/17 11:35 Dose: 25 mg Tamsulosin HCl (Flomax) 0.4 mg PO DAILY TALIA PRN Reason: Protocol Last Admin: 02/25/17 11:34 Dose: 0.4 mg Zolpidem Tartrate (Ambien) 5 mg PO HS TALIA PRN Reason: Protocol Last Admin: 02/25/17 21:39 Dose: Not Given - Labs Labs: 02/24/17 06:25 02/25/17 07:00 - Constitutional Appears: No Acute Distress, Chronically Ill - Head Exam Head Exam: ATRAUMATIC, NORMAL INSPECTION, NORMOCEPHALIC - Eye Exam Eye Exam: Normal appearance Pupil Exam: NORMAL ACCOMODATION - ENT Exam ENT Exam: Mucous Membranes Moist, Normal Oropharynx - Neck Exam Neck Exam: Normal Inspection - Respiratory Exam Respiratory Exam: Clear to Ausculation Bilateral, NORMAL BREATHING PATTERN - Cardiovascular Exam Cardiovascular Exam: REGULAR RHYTHM, +S1, +S2 - GI/Abdominal Exam GI & Abdominal Exam: Soft, Normal Bowel Sounds - Extremities Exam Extremities Exam: Normal Inspection - Back Exam Back Exam: NORMAL INSPECTION - Neurological Exam Neurological Exam: Alert, Awake, Normal Gait, Oriented x3 - Psychiatric Exam Psychiatric exam: Normal Affect, Normal Mood - Skin Skin Exam: Intact, Normal Color, Warm Assessment and Plan - Assessment and Plan (Free Text) Assessment: 1. Hyponatremia : improved. SIADH . mgm as per Dr. Adams. 2. Weakness, failure to thrive : Thyroid functions normal. iron studies, B12, folate with am labs. 3. CT scans chest, abdomen, pelvis normal. 4. Basal ganglion hemorrage, petechial. Neurology following. 5. post herpetic neuralgia : left arm , improving. Thank you dr. adams for allowing us to participate in his care.
[2017-02-26 12:22] LABS: ADD MANUAL DIFF? NO
[2017-02-26 12:24] LABS: BASO # 0.02 K/mm3 (0.0-2.0); BASO % 0.2 % (0.0-3.0); EOS # 0.2 (0.0-0.7); EOS % 1.5 % (1.5-5.0); GRAN # 5.32 (1.4-6.5); GRAN % 50.8 % (50.0-68.0); HEMATOCRIT 43.2 % (42.0-52.0); LYMPH # 4.1 (1.2-3.4); LYMPH % 38.7 % (22.0-35.0); MEAN CELL VOLUME 90.2 fL (80.0-105.0); MEAN CORPUSCULAR HEMOGLOBIN 31.7 pg (25.0-35.0); MEAN CORPUSCULAR HGB CONC 35.2 g/dl (31.0-37.0); MONO # 0.9 (0.1-0.6); MONO % 8.8 % (1.0-6.0); PLATELET COUNT 239 10^3/uL (120.0-450.0); RED CELL DISTRIBUTION WIDTH 14.1 % (11.5-14.5); WHITE BLOOD COUNT 10.5 10^3/ul (4.5-11.0)
[2017-02-26 12:36] LABS: BLOOD UREA NITROGEN 27 mg/dL (7-21); CALCIUM 9.4 mg/dL (8.4-10.5); CARBON DIOXIDE 27 mmol/L (21-33); CHLORIDE 97 mmol/L (98-107); GFR AFRICAN-AMERICAN > 60; GLUCOSE,RANDOM 109 mg/dL (70-110); POTASSIUM 4.8 mmol/L (3.6-5.0); SODIUM 131 mmol/L (132-148)
[2017-02-26 12:55] LABS: IRON 65 ug/dL (45-180)
--- NOTE | 2017-02-28 22:32 | CP.PCM.PN ---
Subjective - Date & Time of Evaluation Date of Evaluation: 02/28/17 Time of Evaluation: 14:00 - Subjective Subjective: Feeling better. Ambulating with support. Pain in left arm improving. Hyponateremia improved. Oal intake is poor. Objective - Vital Signs/Intake and Output Vital Signs (last 24 hours): Temp Pulse Resp BP Pulse Ox 98.6 F 59 L 20 128/69 98 02/28/17 20:00 02/28/17 20:00 02/28/17 20:00 02/28/17 20:00 02/28/17 15:48 - Medications Medications: Current Medications Atenolol (Tenormin) 25 mg PO DAILY TALIA PRN Reason: Protocol Last Admin: 02/28/17 11:05 Dose: Not Given Tamsulosin HCl (Flomax) 0.4 mg PO DAILY TALIA PRN Reason: Protocol Last Admin: 02/28/17 11:05 Dose: 0.4 mg Zolpidem Tartrate (Ambien) 5 mg PO HS TALIA PRN Reason: Protocol Last Admin: 02/28/17 21:52 Dose: Not Given - Labs Labs: 02/26/17 12:10 02/26/17 12:10 - Constitutional Appears: Chronically Ill - Head Exam Head Exam: ATRAUMATIC, NORMAL INSPECTION, NORMOCEPHALIC - Eye Exam Eye Exam: Normal appearance Pupil Exam: NORMAL ACCOMODATION - ENT Exam ENT Exam: Mucous Membranes Moist - Neck Exam Neck Exam: Lymphadenopathy, Normal Inspection - Respiratory Exam Respiratory Exam: Clear to Ausculation Bilateral, NORMAL BREATHING PATTERN - Cardiovascular Exam Cardiovascular Exam: REGULAR RHYTHM, +S1, +S2 - GI/Abdominal Exam GI & Abdominal Exam: Soft, Normal Bowel Sounds - Extremities Exam Extremities Exam: Normal Capillary Refill, Normal Inspection - Back Exam Back Exam: NORMAL INSPECTION - Neurological Exam Neurological Exam: Alert, Awake, CN II-XII Intact, Normal Gait, Oriented x3 - Skin Skin Exam: Dry, Intact, Normal Color, Warm Assessment and Plan - Assessment and Plan (Free Text) Assessment: Assessment: 1. Hyponatremia : SIADH improved. Na 131. 2. Weakness : improved . might be related to hyponatremia. CT chest abdomen pelvis no suspicious lesions. 4. Basal ganglion hemorrage, petechial. Neurology following. 5. post herpetic neuralgia : left arm , improving. 6. Participating in PT. 7. Heme : iron stuides, B12, folate levels normal. Thyroid functions normal.
--- NOTE | 2017-02-28 22:36 | CP.PCM.PN ---
Subjective - Date & Time of Evaluation Date of Evaluation: 02/27/17 Time of Evaluation: 10:00 - Subjective Subjective: No new complaints. Stating that he does not have any energy. Participating in PT. No nausea, vomiting. No fever, chest pain. Objective - Vital Signs/Intake and Output Vital Signs (last 24 hours): Temp Pulse Resp BP Pulse Ox 98.6 F 59 L 20 128/69 98 02/28/17 20:00 02/28/17 20:00 02/28/17 20:00 02/28/17 20:00 02/28/17 15:48 Intake and Output: 02/28/17 03/01/17 18:59 06:59 Intake Total 600 Output Total 500 Balance 100 - Medications Medications: Current Medications Atenolol (Tenormin) 25 mg PO DAILY TALIA PRN Reason: Protocol Last Admin: 02/28/17 11:05 Dose: Not Given Tamsulosin HCl (Flomax) 0.4 mg PO DAILY TALIA PRN Reason: Protocol Last Admin: 02/28/17 11:05 Dose: 0.4 mg Zolpidem Tartrate (Ambien) 5 mg PO HS TALIA PRN Reason: Protocol Last Admin: 02/28/17 21:52 Dose: Not Given - Labs Labs: 02/26/17 12:10 02/26/17 12:10 - Constitutional Appears: Chronically Ill - Head Exam Head Exam: ATRAUMATIC, NORMAL INSPECTION, NORMOCEPHALIC - Eye Exam Eye Exam: Normal appearance Pupil Exam: NORMAL ACCOMODATION - ENT Exam ENT Exam: Mucous Membranes Moist, Normal Exam - Neck Exam Neck Exam: Normal Inspection - Respiratory Exam Respiratory Exam: Clear to Ausculation Bilateral, NORMAL BREATHING PATTERN - Cardiovascular Exam Cardiovascular Exam: REGULAR RHYTHM, +S1, +S2 - GI/Abdominal Exam GI & Abdominal Exam: Soft, Normal Bowel Sounds - Extremities Exam Extremities Exam: Full ROM, Normal Capillary Refill, Normal Inspection - Back Exam Back Exam: NORMAL INSPECTION - Neurological Exam Neurological Exam: Alert, Awake, CN II-XII Intact, Normal Gait, Oriented x3 - Skin Skin Exam: Dry, Intact, Normal Color, Warm Assessment and Plan - Assessment and Plan (Free Text) Assessment: Assessment: 1. Hyponatremia :SIADH, improved. 2. Weakness: deconditioning. undergoing PT. 3. CT scans chest, abdomen, pelvis normal. 4. Basal ganglion hemorrage, petechial. Neurology following. 5. post herpetic neuralgia : left arm , improving. 6. labs ordered for am.
[2017-03-01 15:57] VITALS: BP 130/70; PULSE 59; RESP 18; TEMP 99.8; O2SAT 90
--- NOTE | 2017-03-01 17:33 | DS ---
SUBJECTIVE: The patient has no complaints of any chest pain or shortness of breath, no headaches or dizziness, temperature. He is able to ambulate, but still complains of weakness. PHYSICAL EXAMINATION: VITAL SIGNS: Temperature is 98.6, pulse of 65, blood pressure 126/67, respirations 20. GENERAL: The patient is comfortable, in no acute distress. HEENT: Anicteric sclerae. Moist mucosa. NECK: No JVD or adenopathy. CARDIAC: S1/S2. No murmurs. No rubs. Regular. RESPIRATORY: Clear to auscultation bilaterally. No wheezes, rales, or rhonchi. Good air entry. ABDOMEN: Bowel sounds are positive, soft, nontender, and nondistended. EXTREMITIES: No edema. Has 1+ pulses. ASSESSMENT: 1. Hyponatremia secondary to syndrome of inappropriate antidiuretic hormone, which is resolved. 2. Coronary artery disease. 3. Gait dysfunction. 4. PENICILLIN ALLERGY. 5. Shingles. 6. Benign prostatic hypertrophy. PLAN: The patient is currently on Ambien. He is comfortable. He is on atenolol. The patient may h ave had SIADH while he has his shingles outbreak, or possibly from his medications like acyclovir, al though this is not a common cause of SIADH. The patient's last sodium was acceptable. He is on a re gular diet. He is eating well. He is scheduled to go to [facility] if he gets accepted. I did speak to the patient's son on Wednesday to give him an update on the patient's diagnosis and plan of care. W ill discharge. Augustin Adams MD cc: [id number] TT: 03/01/2017 17:33:13 linda
== END 2017-03-01 19:54 | DRG 945 ==
LOC: TRCU 18:33
PROVIDERS: ADMIT Internal Medicine Nephrology; ATTEND Internal Medicine Nephrology
PROC: F07Z9FZ Gait Training/Functional Ambulation Treatment using Assistive, Adaptive, Supportive or Protective Equipment (ICD-10-PCS; principal; 2017-02-21)
PROC: F08Z4FZ Home Management Treatment using Assistive, Adaptive, Supportive or Protective Equipment (ICD-10-PCS; 2017-02-21)
DX: R53.1 Weakness (principal); E22.2 Syndrome of inappropriate secretion of antidiuretic hormone; R26.9 Unspecified abnormalities of gait and mobility; B02.29 Other postherpetic nervous system involvement; I25.10 Atherosclerotic heart disease of native coronary artery without angina pectoris; R62.7 Adult failure to thrive; R63.4 Abnormal weight loss; N40.0 Benign prostatic hyperplasia without lower urinary tract symptoms; Z68.24 Body mass index [BMI] 24.0-24.9, adult; Z85.820 Personal history of malignant melanoma of skin; Z95.5 Presence of coronary angioplasty implant and graft; Z88.0 Allergy status to penicillin